=== PATIENT | female | born 1945 | race Caucasian/White ===

== ENCOUNTER 2016-07-23 16:29 | Emergency (ER) | payer MEDICARE, MEDICAID ==
[2016-07-23 17:54] VITALS: BP 138/66
[2016-07-23] MEDS ORDERED: Acetaminophen TAB* 325 MG PO ONE (18:01)
--- NOTE | 2016-07-23 18:13 | UC ---
Lower Extremity/Ankle HPI - HPI Summary HPI Summary: came home from "work program" with a bruised right toe and complains of foot hurting --unable to state an injury and no injury reported by staff - History of Current Complaint Chief Complaint: UCLowerExtremity Stated Complaint: TOE INJURY Time Seen by Provider: 07/23/16 17:57 Hx Obtained From: Patient ?: No Onset/Duration: Sudden Onset, Lasting Days - 1 Severity Initially: Mild Severity Currently: Mild Aggravating Factor(s): Other - touch Alleviating Factor(s): Nothing - Allergies/Home Medications Allergies/Adverse Reactions: Allergies Allergy/AdvReac Type Severity Reaction Status Date / Time Carbamazepine [From Tegretol] Allergy Severe Vomiting Verified 06/21/16 09:13 Codeine Allergy Unknown Verified 07/23/16 17:55 Reaction Details tegr Allergy Severe Vomiting Uncoded 06/21/16 09:13 opioids Allergy Unknown Uncoded 07/23/16 17:55 Reaction Details PMH/Surg Hx/FS Hx/Imm Hx Previously Healthy: No - MR Cardiovascular History Of: Reports: Cardiac Disorders Psychological History Of: Reports: Anxiety - Surgical History Surgical History: Yes Surgery Procedure, Year, and Place: bilat knee replacements - Family History Known Family History: Positive: Unknown Family History: patient living in nursing home unable provide family history - Social History Occupation: Disabled Lives: [facility] Alcohol Use: None Substance Use Type: None Smoking Status (MU): Never Smoked Tobacco Review of Systems Constitutional: Fever Skin: Bruising - right great toe bruising Eyes: Negative ENT: Negative Respiratory: Negative Cardiovascular: Negative Gastrointestinal: Negative Genitourinary: Negative Motor: Negative Neurovascular: Negative Musculoskeletal: Arthralgia - right lateral foot pain Neurological: Negative Psychological: Negative All Other Systems Reviewed And Are Negative: Yes Physical Exam Triage Information Reviewed: Yes Appearance: Well-Appearing, No Pain Distress - when toe is touched, Obese Vital Signs: Initial Vital Signs Temp 97.8 F 07/23/16 17:47 Pulse 70 07/23/16 17:47 Resp 18 07/23/16 17:47 BP 138/66 07/23/16 17:47 Pulse Ox 96 07/23/16 17:47 Vital Signs Reviewed: Yes Eye Exam: Normal Eyes: Positive: Conjunctiva Clear ENT Exam: Normal ENT: Positive: Normal ENT inspection, Hearing grossly normal. Negative: Nasal congestion, Nasal drainage, Trismus, Muffled/hoarse voice Neck exam: Normal Neck: Positive: Supple, Nontender, No Lymphadenopathy Respiratory Exam: Normal Respiratory: Positive: No respiratory distress, No accessory muscle use Cardiovascular Exam: Normal Cardiovascular: Positive: RRR, Pulses Normal, Brisk Capillary Refill Musculoskeletal Exam: Normal Musculoskeletal: Positive: Strength Intact, ROM Intact, Edema @ - right lateral foot Neurological Exam: Normal Neurological: Positive: Alert, Muscle Tone Normal Psychological Exam: Normal Skin Exam: Normal Diagnostics - Laboratory Diagnostic Studies Completed/Ordered: no acute joey injury, Lower Extremity Course/Dx - Course Course Of Treatment: tylenol, ibuprofen, sturdy shoes, follow with pcp prn - Differential Dx/Diagnosis Differential Diagnosis/HQI/PQRI: Cellulitis, Contusion, Fracture (Closed), Sprain, Strain Provider Diagnoses: contusion right 5th toe Discharge - Discharge Plan Condition: Stable Disposition: HOME Patient Education Materials: Foot Contusion (ED) Referrals: Theresa Ferrari MD [Medical Doctor] - If Needed
--- NOTE | 2016-07-23 18:41 | RAD ---
Indication: RIGHT first toe pain and bruising. Indeterminate injury. Comparison: None. Technique: AP, lateral, and oblique views RIGHT foot. Report: Bone density is decreased throughout. Negative for fracture. Loss of the longitudinal arch of the foot. Polyarticular degenerative arthropathy most advanced at the transverse tarsal and intertarsal joints. Moderate plantar fascial origin bone spur. Distal fibula and tibia internal fixation hardware. Diffuse soft tissue edema. IMPRESSION: Negative for fracture or dislocation. Polyarticular osteoarthritis. Nonfocal soft tissue swelling.
== END 2016-07-23 19:13 | disposition home or self-care (01) ==
LOC: UCEAST 16:29
DX: S90.121A Contusion of right lesser toe(s) without damage to nail, initial encounter (principal); X58.XXXA Exposure to other specified factors, initial encounter; Y93.9 Activity, unspecified; Y92.9 Unspecified place or not applicable; Z88.6 Allergy status to analgesic agent; Z88.5 Allergy status to narcotic agent; Z88.8 Allergy status to other drugs, medicaments and biological substances
CPT/HCPCS: 99212; A9270-GY; G0463

== ENCOUNTER 2016-10-09 11:19 | Emergency (ER) | payer MEDICARE, MEDICAID ==
[2016-10-09 12:23] VITALS: BP 130/55
[2016-10-09] MEDS ORDERED: Acetaminophen TAB* 325 MG PO ONE (13:05)
--- NOTE | 2016-10-09 14:23 | RAD ---
HISTORY: Trauma, head injury COMPARISONS: None TECHNIQUE: Multiple contiguous axial CT scans were obtained of the head without intravenous contrast. FINDINGS: HEMORRHAGE/INFARCT: There is no hemorrhage or acute infarct. MASSES/SHIFT: There is no mass or shift. EXTRA-AXIAL SPACES: There are no extra-axial fluid collections. SULCI AND VENTRICLES: The sulci and ventricles are normal in size and position for the patient's stated age. CEREBRUM: There are no focal parenchymal abnormalities. BRAINSTEM: There are no focal parenchymal abnormalities. CEREBELLUM: There are no focal parenchymal abnormalities. VESSELS: The vessels are grossly normal. PARANASAL SINUSES: The paranasal sinuses are clear. ORBITS: The orbits are unremarkable. BONES AND SOFT TISSUE: No bone or soft tissue abnormalities are noted. OTHER: None IMPRESSION: NO ACUTE INTRACRANIAL PATHOLOGY.
--- NOTE | 2016-10-09 14:26 | RAD ---
HISTORY: Trauma, head injury COMPARISONS: None TECHNIQUE: Multiple contiguous axial CT scans were obtained of the cervical spine without intravenous contrast, with coronal and sagittal multiplanar reformations. FINDINGS: BRAIN: The visualized brain is unremarkable CENTRAL CANAL: Evaluation of the central canal is limited on CT technique; however, there is no obvious canalicular mass or epidural hemorrhage. ALIGNMENT: There is straightening with reversal of the normal cervical lordosis. There is grade 1 anterolisthesis of C3 on C4 and C7 on T1 VERTEBRAL BODIES: The odontoid process is intact. There is diffuse osteopenia. The atlantoaxial intervals are symmetric. The vertebral bodies are normal in attenuation, without fracture. There is multilevel anterolateral marginal osteophyte formation JOINTS: There is extensive facet and uncovertebral osteoarthritic change. There is osteoporosis of the atlantoaxial articulation. MUSCULATURE: Unremarkable INTERVERTEBRAL DISCS: There is diffuse loss of intervertebral disc height. AXIAL IMAGES: C2-C3: There is bilateral uncovertebral and facet hypertrophy, greater on the right than on the left. There is moderate right neural foraminal narrowing. There is no significant central canal stenosis C3-C4: There is bilateral uncovertebral facet hypertrophy. There is moderate bilateral neural foraminal narrowing. There is no osseous central canal stenosis. C4-C5: There is bilateral uncovertebral and facet hypertrophy. There is severe right and moderate left neural foraminal narrowing. There is no osseous central canal stenosis. C5-C6: There is bilateral uncovertebral facet hypertrophy. There is severe right neural foraminal narrowing. There is mild narrowing of the central canal. C6-C7: There is bilateral uncovertebral and facet hypertrophy. There is moderate bilateral neural foraminal narrowing. There is no osseous central canal stenosis. C7-T1: There is bilateral uncovertebral and facet hypertrophy. There is severe bilateral neural foraminal narrowing. There is no osseous central canal stenosis SOFT TISSUES: There is a 1.7 cm nodule of the right thyroid OTHER: None. IMPRESSION: 1. OSTEOPENIA. 2. DEGENERATIVE DISC DISEASE AND OSTEOARTHRITIS. 3. THERE IS MULTILEVEL NEURAL FORAMINAL NARROWING RIGHT ABOVE. 4. THERE IS MILD NARROWING OF THE CENTRAL CANAL AT C5-C6. 5. THERE IS A 1.7 CM NODULE OF THE RIGHT THYROID. RECOMMEND CORRELATION WITH DEDICATED IMAGING OF THE RIGHT THYROID IN THE NONACUTE SETTING. 6. NO ACUTE OSSEOUS INJURY TO THE CERVICAL SPINE
--- NOTE | 2016-10-09 14:43 | RAD ---
HISTORY: Fall, abrasion left elbow pain COMPARISONS: None VIEWS: 4, Frontal, lateral, and oblique views of the left elbow FINDINGS: BONE DENSITY: Normal. BONES: There is no displaced fracture. JOINTS: There is moderate to advanced osteoarthritis of the radial-capitellar and ulnar trochlear articulations ALIGNMENT: There is no dislocation. SOFT TISSUES: Unremarkable. OTHER FINDINGS: None. IMPRESSION: OSTEOARTHRITIS. NO ACUTE OSSEOUS INJURY. IF SYMPTOMS PERSIST, RECOMMEND REPEAT IMAGING.
--- NOTE | 2016-10-09 16:34 | UC ---
Awilda Sam Salem, scribed for Hillary Teague MD on 10/09/16 at 1305 . Head Injury HPI - HPI Summary HPI Summary: Patient is a 71 y/o female who presents to the a head injury without LOC after a fall at 1015 this morning. She also presents with an injured left arm and an abrasion on her left elbow. Pt lives in a shelter and is present at the with Coral from the shelter. Here is Kristal note: Individual was taken to due to a fall at [facility] @ 1015. Caridad fell and hit her head in the back of her head. Vitals taken as follows: Bp 138/55. T = 98.6, Ox: 95, HR: 62 R: 18. - History Of Current Complaint Chief Complaint: UCHeadInjury Stated Complaint: FELL HEAD INJURY Time Seen by Provider: 10/09/16 12:55 Hx Obtained From: Patient, Family/Assistant Womens Volleyball Coach - from shelter. Hx From Patient Unobtainable Due To: Other - MRGlenn Onset/Duration: Sudden Onset, Lasting Hours Severity Currently: Moderate Severity Initially: Moderate Pain Intensity: 8 Pain Scale Used: 0-10 Numeric Character: Dull Aggravating Factor(s): Nothing Alleviating Factor(s): Nothing Associated Signs And Symptoms: Positive: Other - Left arm injury and elbow abrasion.. Negative: LOC (Time In Secs./Mins/Hrs), LOC Duration Unknown, Epistaxis, Nausea Anticoagulant Therapy: ASA - Allergies/Home Medications Allergies/Adverse Reactions: Allergies Allergy/AdvReac Type Severity Reaction Status Date / Time Carbamazepine [From Tegretol] Allergy Severe Vomiting Verified 10/09/16 12:24 Codeine Allergy Unknown Verified 10/09/16 12:24 Reaction Details opioids Allergy Unknown Uncoded 10/09/16 12:24 Reaction Details PMH/Surg Hx/FS Hx/Imm Hx Cardiovascular History Of: Reports: Cardiac Disorders Psychological History Of: Reports: Anxiety - Surgical History Surgical History: Yes Surgery Procedure, Year, and Place: bilat knee replacements - Family History Known Family History: Positive: Unknown - Unknown pt is MRGlenn Level 5 Caveat. - Social History Alcohol Use: None Substance Use Type: Prescribed Smoking Status (MU): Never Smoked Tobacco Review of Systems Constitutional: Negative Musculoskeletal: Other: - Left arm injury and elbow abrasion. Psychological: Negative All Other Systems Reviewed And Are Negative: Yes Physical Exam Triage Information Reviewed: Yes Appearance: Well-Appearing, Pain Distress, Obese Vital Signs: Initial Vital Signs Temp 98.6 F 10/09/16 12:18 Pulse 62 10/09/16 12:18 Resp 18 10/09/16 12:18 BP 130/55 10/09/16 12:18 Pulse Ox 96 10/09/16 12:18 Elevated systolic pressure. Vital Signs Reviewed: Yes Eyes: Positive: Conjunctiva Clear ENT Exam: Other - Cauliflower deformity of left ear. ENT: Positive: Pharynx normal, TMs normal, Other: - no hematoma on scalp, indicates occiput Neck: Positive: Supple, Nontender Respiratory: Positive: Lungs clear, Normal breath sounds, No respiratory distress Cardiovascular: Positive: RRR, No Murmur, Pulses Normal, Brisk Capillary Refill Abdomen Description: Positive: Nontender, Soft. Negative: Splenomegaly Musculoskeletal: Positive: Strength Intact, ROM Intact Neurological: Positive: Alert, Muscle Tone Normal Psychological: Positive: Normal Response To Family Skin Exam: Normal Diagnostics - Laboratory Diagnostic Studies Completed/Ordered: SPINE CT. BRAIN CT - Radiology Elbow XR Radiology Interpretation Completed By: Radiologist Head Injury Course/Dx - Course Course Of Treatment: Discussed elevated systolic pressure. CT brain and CT C spine with no acute findings. left elbow xray no fracture - Differential Dx/Diagnosis Provider Diagnoses: 1. Head injury. 2. High blood pressure without diagnosis of hypertension. 3. Thyroid nodule Discharge - Discharge Plan Condition: Stable Disposition: HOME Patient Education Materials: Head Injury (ED) Referrals: Selma Ley MD [Primary Care Provider] - Additional Instructions: Resume prior meds and orders. May attend dayhab program. RETURN TO URGENT CARE FOR ANY NEW OR WORSENING SYMPTOMS The documentation as recorded by the Awilda stewart Salem accurately reflects the service I personally performed and the decisions made by , Hillary Teague MD.
== END 2016-10-09 15:24 | disposition home or self-care (01) ==
LOC: UCEAST 11:19
DX: S09.90XA Unspecified injury of head, initial encounter (principal); S50.312A Abrasion of left elbow, initial encounter; W19.XXXA Unspecified fall, initial encounter; Y93.9 Activity, unspecified; Y92.199 Unspecified place in other specified residential institution as the place of occurrence of the external cause; E04.1 Nontoxic single thyroid nodule; R03.0 Elevated blood-pressure reading, without diagnosis of hypertension; M19.022 Primary osteoarthritis, left elbow; M85.88 Other specified disorders of bone density and structure, other site; M50.30 Other cervical disc degeneration, unspecified cervical region; M47.812 Spondylosis without myelopathy or radiculopathy, cervical region; Z88.5 Allergy status to narcotic agent; Z88.8 Allergy status to other drugs, medicaments and biological substances; Z96.653 Presence of artificial knee joint, bilateral
CPT/HCPCS: 70450; 72125; 99212; A9270-GY; G0463

== ENCOUNTER 2016-11-16 11:17 | Emergency (ER) | payer MEDICARE, MEDICAID ==
[2016-11-16 13:20] VITALS: BP 130/59
--- NOTE | 2016-11-16 13:26 | UC ---
Respiratory Complaint HPI - HPI Summary HPI Summary: [facility]. c/o of fever, cough, SOB for the past few days. - History of Current Complaint Chief Complaint: UCRespiratory Stated Complaint: COUGH,CHEST CONGESTION Time Seen by Provider: 11/16/16 13:13 Hx Obtained From: Patient ?: No Onset/Duration: Sudden Onset, Lasting Days Timing: Constant Severity Initially: Mild Severity Currently: Moderate Character: Cough: Productive Aggravating Factors: Exertion, Deep Breaths, Recumbent Position Associated Signs And Symptoms: Positive: Dyspnea, Fever, Wheezing, Nasal Congestion - Risk Factors Pulmonary Embolism Risk Factors: Negative Cardiac Risk Factors: Negative - Allergies/Home Medications Allergies/Adverse Reactions: Allergies Allergy/AdvReac Type Severity Reaction Status Date / Time Carbamazepine [From Tegretol] Allergy Severe Vomiting Verified 11/16/16 13:19 Codeine Allergy Unknown Verified 11/16/16 13:19 Reaction Details opioids Allergy Unknown Uncoded 11/16/16 13:19 Reaction Details PMH/Surg Hx/FS Hx/Imm Hx Previously Healthy: Yes Cardiovascular History Of: Reports: Cardiac Disorders Neurological History Of: Reports: Seizures Psychological History Of: Reports: Anxiety - Surgical History Surgical History: Yes Surgery Procedure, Year, and Place: bilat knee replacements - Family History Known Family History: Positive: Unknown - Unknown pt is MR. Level 5 Caveat. Family History: [facility] unable provide family history - Social History Alcohol Use: None Substance Use Type: Prescribed Smoking Status (MU): Never Smoked Tobacco Review of Systems Constitutional: Fever Skin: Negative Eyes: Negative ENT: Sore Throat Respiratory: Shortness Of Breath, Cough Cardiovascular: Negative Gastrointestinal: Negative Genitourinary: Negative Motor: Negative Neurovascular: Negative Musculoskeletal: Negative Neurological: Negative Psychological: Negative All Other Systems Reviewed And Are Negative: Yes Physical Exam Triage Information Reviewed: Yes Appearance: No Pain Distress, Ill-Appearing, Obese Vital Signs: Initial Vital Signs Temp 99.7 F 11/16/16 13:13 Pulse 80 11/16/16 13:13 Resp 20 11/16/16 13:13 BP 130/59 11/16/16 13:13 Pulse Ox 97 11/16/16 13:13 Eye Exam: Normal ENT Exam: Normal ENT: Positive: Hearing grossly normal, Pharyngeal erythema, TMs normal Dental Exam: Normal Neck exam: Normal Neck: Positive: Supple, Nontender, No Lymphadenopathy Respiratory: Positive: Chest non-tender, No accessory muscle use, Decreased breath sounds, Wheezing, Inspiration Cardiovascular Exam: Normal Cardiovascular: Positive: RRR, No Murmur, Pulses Normal Abdominal Exam: Normal Abdomen Description: Positive: Nontender, No Organomegaly, Soft Bowel Sounds: Positive: Present Musculoskeletal Exam: Normal Musculoskeletal: Positive: Strength Intact, ROM Intact, No Edema Neurological Exam: Normal Neurological: Positive: Alert, Muscle Tone Normal Psychological Exam: Normal Psychological: Positive: Normal Response To Family Skin Exam: Normal UC Diagnostic Evaluation - Laboratory O2 Sat by Pulse Oximetry: 97 Respiratory Course/Dx - Course Course Of Treatment: hx obtained, exam performed, meds reviewed, chest xray obtained, advil given prior to arrival, prednisone prescribed for bronchitis - Differential Dx/Diagnosis Differential Diagnosis/HQI/PQRI: Asthma, Bronchitis, Lower Resp Infection, Sinusitis Provider Diagnoses: Bronchitis Discharge - Discharge Plan Condition: Stable Disposition: HOME Patient Education Materials: Acute Bronchitis (ED) Additional Instructions: 1. see the attached report sheet for treatment plan.
--- NOTE | 2016-11-16 13:56 | RAD ---
INDICATION: Cough. Fever. Short of breath COMPARISON: None TECHNIQUE: PA and lateral dual-energy views were obtained. FINDINGS: Bones/Soft Tissues: There are no acute bony findings. Cardiomediastinal: The cardiomediastinal silhouette is normal. Lungs: There are no infiltrates. There are mild chronic interstitial changes Pleura: There are no pleural effusions. Other: None IMPRESSION: MILD CHRONIC INTERSTITIAL CHANGES. NO CONVINCING EVIDENCE OF VASCULAR CONGESTION. NO FOCAL CONSOLIDATIVE CHANGES.
== END 2016-11-16 14:09 | disposition home or self-care (01) ==
LOC: UCEAST 11:17
DX: J40 Bronchitis, not specified as acute or chronic (principal); F41.9 Anxiety disorder, unspecified; E66.9 Obesity, unspecified; Z96.653 Presence of artificial knee joint, bilateral; Z88.5 Allergy status to narcotic agent
CPT/HCPCS: 71020; 99212; G0463

== ENCOUNTER 2017-01-28 17:46 | Emergency (ER) | payer MEDICARE, MEDICAID ==
--- NOTE | 2017-01-28 22:24 | ED ---
Respiratory - HPI Summary HPI Summary: 71 female brought in by caregiver with complaints of having an episode of choking on a pea around 5pm today 01/28/17. Patient and caregiver states due to half-way protocol because of this episode she had to be evaluated by a medical professional to ensure she did not aspirate. Patient immediately drank water and short after vomited the pea and water. Since she has not had any difficulty breathing, swallowing or discomfort. Normal vitals. No further vomiting. No complaints at this time. - History of Current Complaint Chief Complaint: EDGeneral Stated Complaint: COUGH, Time Seen by Provider: 01/28/17 21:54 Hx Obtained From: Patient, Family/Human Resources Recruiter - caregiver Onset/Duration: Sudden Onset, Resolved Current Severity: None Pain Intensity: 0 Sputum Amount: None Aggravating Factor(s): Nothing Alleviating Factor(s): Nothing - Allergy/Home Medications Allergies/Adverse Reactions: Allergies Allergy/AdvReac Type Severity Reaction Status Date / Time Carbamazepine [From Tegretol] Allergy Severe Vomiting Verified 01/28/17 21:46 Codeine Allergy Unknown Verified 01/28/17 21:46 Reaction Details Meperidine Allergy Unknown Verified 01/28/17 21:47 Reaction Details Morphine Allergy Unknown Verified 01/28/17 21:47 Reaction Details opioids Allergy Unknown Uncoded 01/28/17 21:46 Reaction Details PMH/Surg Hx/FS Hx/Imm Hx Endocrine/Hematology History: Denies: Hx Diabetes Cardiovascular History: Denies: Hx Hypertension GI History: Reports: Hx Diverticulosis Neurological History: Reports: Hx Developmental Delay, Hx Seizures Psychiatric History: Reports: Hx Anxiety - Surgical History Surgery Procedure, Year, and Place: bilat knee replacements Infectious Disease History: No Infectious Disease History: Denies: Hx Clostridium Difficile, Hx Hepatitis, Hx Human Immunodeficiency Virus (HIV), Hx of Known/Suspected MRSA, Hx Shingles, Hx Tuberculosis, Hx Known/ Suspected VRE, History Other Infectious Disease, Traveled Outside the [place] in Last 30 Days - Family History Known Family History: Positive: Unknown - Unknown pt is MR. Level 5 Caveat. Family History: patient living in half-way unable provide family history - Social History Alcohol Use: None Substance Use Type: Reports: None, Prescribed Smoking Status (MU): Never Smoked Tobacco Review of Systems Constitutional: Negative Eyes: Negative ENT: Negative Cardiovascular: Negative Respiratory: Negative Gastrointestinal: Negative Skin: Negative Neurological: Negative All Other Systems Reviewed And Are Negative: Yes Physical Exam Triage Information Reviewed: Yes Vital Signs On Initial Exam: Initial Vitals Temp Pulse Resp BP Pulse Ox 98.8 F 72 20 162/51 100 01/28/17 17:58 01/28/17 17:58 01/28/17 17:58 01/28/17 17:58 01/28/17 17:58 not hypoxic normal vitals, elevated BP noted. compared to previous visits and is normal range. Vital Signs Reviewed: Yes Appearance: Positive: Well-Appearing, No Pain Distress, Well-Nourished Skin: Positive: Warm, Skin Color Reflects Adequate Perfusion, Dry. Negative: Cold, Numb, Tender, Cyanosis @, Diaphoretic Head/Face: Positive: Normal Head/Face Inspection Eyes: Positive: Normal, EOMI, GIOVANNI, Conjunctiva Clear ENT: Positive: Normal ENT inspection, Hearing grossly normal, Pharynx normal, TMs normal Neck: Positive: Supple, Nontender Respiratory/Lung Sounds: Positive: Clear to Auscultation, Breath Sounds Present. Negative: Rales, Rhonchi, Wheezes Cardiovascular: Positive: Normal, RRR, Pulses are Symmetrical in both Upper and Lower Extremities. Negative: Murmur, Rub Abdomen Description: Positive: Nontender, No Organomegaly, Soft. Negative: Bruit, CVA Tenderness (R), CVA Tenderness (L), Distended, Guarding, Peritoneal Signs, Pulsatile Mass Bowel Sounds: Positive: Present Musculoskeletal: Positive: Normal, Strength/ROM Intact Neurological: Positive: Normal, Sensory/Motor Intact, Alert, Oriented to Person Place, Time Psychiatric: Positive: Affect/Mood Appropriate AVPU Assessment: Alert Diagnostics - Vital Signs Vital Signs Temp Pulse Resp BP Pulse Ox 01/28/17 21:52 16 01/28/17 21:43 97.2 F 64 18 138/64 97 01/28/17 21:00 97.3 F 64 138/64 96 01/28/17 17:58 98.8 F 72 20 162/51 100 - Laboratory Lab Statement: Any lab studies that have been ordered have been reviewed, and results considered in the medical decision making process. - Radiology chest Xray Interpretation: No Acute Changes - No evidence of cardiopulmonary disease or aspiration Radiology Interpretation Completed By: ED Physician - Dr Hall Disposition - Course Course Of Treatment: chest x-ray obtained and negative. PE findings normal and unremarkable. no further work up required at this time. episode resolved prior to coming into ED. Aware of worsening signs and symptoms. Follow up with PCP. - Differential Dx - Cardiopulmonary Differential Diagnoses - Cardiopulmonary: Aspiration, Other - choking, difficulty breathing - Diagnoses Provider Diagnoses: Normal exam, Choking due to food in larynx Discharge - Discharge Plan Condition: Stable Disposition: HOME Referrals: Selma Ley MD [Primary Care Provider] - Additional Instructions: If new symptoms develop such as difficulty breathing or continued vomiting please seek medical attention. Follow up with PCP. Chew food slowly.
[2017-01-29 00:22] VITALS: BP 142/76
--- NOTE | 2017-01-29 07:58 | RAD ---
HISTORY: Rule out foreign body aspiration COMPARISONS: November 25, 2016 VIEWS: 4: Frontal dual-energy and lateral views of the chest. FINDINGS: CARDIOMEDIASTINAL SILHOUETTE: The cardiomediastinal silhouette is normal. CONNOR: The connor are normal. PLEURA: There is minimal left apical pleural thickening. This can be identified previous examinations and is stable. LUNG PARENCHYMA: The lungs are clear. There is no appreciable air trapping. ABDOMEN: The upper abdomen is clear. There is no subphrenic gas. BONES AND SOFT TISSUES: No bone or soft tissue abnormalities are noted. OTHER: There is no radiopaque foreign body. IMPRESSION: NO ACTIVE CARDIOPULMONARY DISEASE. NO RADIOPAQUE FOREIGN BODY
== END 2017-01-29 00:24 | disposition home or self-care (01) ==
LOC: ED 17:46
DX: R09.89 Other specified symptoms and signs involving the circulatory and respiratory systems (principal); R05 Cough
CPT/HCPCS: 71020; 99281

== ENCOUNTER 2017-03-01 06:55 | Emergency (ER) | payer MEDICARE, MEDICAID ==
--- NOTE | 2017-03-01 07:53 | RAD ---
HISTORY: Chest pain COMPARISONS: January 28, 2017 VIEWS:1: Single frontal portable view of the chest at 7:25 AM FINDINGS: LINES AND TUBES: None. CARDIOMEDIASTINAL SILHOUETTE: The cardiomediastinal silhouette is normal for portable technique. PLEURA: The costophrenic angles are sharp. No pleural abnormalities are noted. LUNG PARENCHYMA: The lung volumes are low. The lungs are clear accounting for the phase of respiration. ABDOMEN: The upper abdomen is clear. There is no subphrenic gas. BONES AND SOFT TISSUES: No bone or soft tissue abnormalities are noted. IMPRESSION: LOW LUNG VOLUMES. NO ACTIVE CARDIOPULMONARY DISEASE.
[2017-03-01 08:22] LABS: Hematocrit 42 % (35-47); Hemoglobin 13.9 g/dl (12.0-16.0); Mean Corpuscular HGB Conc 34 g/dl (31-36); Mean Corpuscular Hemoglobin 32 pg (27-31); Mean Corpuscular Volume 94 fL (80-97); Mean Platelet Volume 8 um3 (7.4-10.4); Red Blood Count 4.42 10^6/ul (4.0-5.4); Red Cell Distribution Width 13 % (10.5-15); White Blood Count 7.1 10^3/ul (3.5-10.8)
[2017-03-01 08:35] LABS: Albumin 4.1 g/dL (3.2-5.2); Calcium 8.7 mg/dL (8.6-10.3); EGFR Non-African American 73.9 (>60); Globulin 2.9 g/dL (2-4); Magnesium 2.1 mg/dL (1.9-2.7); Potassium 3.7 mmol/L (3.5-5.0); Total Bilirubin 0.4 mg/dL (0.2-1.0)
[2017-03-01 08:37] LABS: Troponin I 0.01 ng/mL (<0.04)
[2017-03-01 08:52] LABS: TSH (Thyroid Stimulating Horm) 1.66 mcIU/mL (0.34-5.60)
[2017-03-01] MEDS ORDERED: Ketorolac INJ* 30 MG/ML 1 ML VIAL IV PUSH ONE (09:09)
[2017-03-01 10:21] VITALS: BP 114/69
--- NOTE | 2017-03-02 16:06 | ED ---
Corey Sam Thomas, scribed for Kota Rodriguez MD on 03/01/17 at 0724 . HPI Chest Pain - HPI Summary HPI Summary: LEVEL 5 CAVEAT: HPI LIMITED BY The pt is a 71 y/o F with a Hx of MR and presenting to the ED c/o CP that began at an unspecified time. She lives in a custodial. Per EMS, the pts chest pain seemed to resolve when she went to the bathroom, but she still complains of chest pain in the ED. Pt denies fevers, chills, and coughing. PMHx: osteoarthritis, osteopenia, diverticulosis, developmental delay, and seizures. PSHx: bilateral knee replacements. SHx: no smoking, no alcohol use, no illicit drug use. - History of Current Complaint Chief Complaint: EDChestPainROMI Time Seen by Provider: 03/01/17 07:20 Hx Obtained From: Patient, EMS Onset/Duration: Still Present Associated Signs and Symptoms: Positive: Chest Pain - Allergy/Home Medications Allergies/Adverse Reactions: Allergies Allergy/AdvReac Type Severity Reaction Status Date / Time Carbamazepine [From Tegretol] Allergy Severe Vomiting Verified 03/01/17 07:20 Codeine Allergy Unknown Verified 03/01/17 07:20 Reaction Details Meperidine Allergy Unknown Verified 03/01/17 07:20 Reaction Details Morphine Allergy Unknown Verified 03/01/17 07:20 Reaction Details opioids Allergy Unknown Uncoded 03/01/17 07:20 Reaction Details PMH/Surg Hx/FS Hx/Imm Hx Previously Healthy: No - LEVEL 5 CAVEAT: PE LIMITED BY Endocrine/Hematology History: Denies: Hx Diabetes, Hx Anemia Cardiovascular History: Denies: Hx Hypertension GI History: Reports: Hx Diverticulosis Denies: Hx Jaundice Musculoskeletal History: Reports: Hx Arthritis, Other Musculoskeletal History - Hx osteopenia Neurological History: Reports: Hx Developmental Delay, Hx Seizures Psychiatric History: Reports: Hx Anxiety - Surgical History Surgery Procedure, Year, and Place: bilat knee replacements Infectious Disease History: Denies: Hx Clostridium Difficile, Hx Hepatitis, Hx Human Immunodeficiency Virus (HIV), Hx of Known/Suspected MRSA, Hx Shingles, Hx Tuberculosis, Hx Known/ Suspected VRE, History Other Infectious Disease, Traveled Outside the [place] in Last 30 Days - Family History Known Family History: Positive: Unknown - Unknown pt is . Family History: patient living in custodial unable provide family history - Social History Alcohol Use: None Substance Use Type: Reports: None, Prescribed Smoking Status (MU): Never Smoked Tobacco Review of Systems - ROS Summary Review of Systems Summary: LEVEL 5 CAVEAT: ROS LIMITED BY MR Positive: Chest Pain All Other Systems Reviewed And Are Negative: No Physical Exam - Summary Physical Exam Summary: VITAL SIGNS: Reviewed. GENERAL: ~Patient is a well-developed and nourished female who is lying comfortable in the stretcher. She cannot give a good history due to MR. Patient is not in any acute respiratory distress. HEAD AND FACE: No signs of trauma. ~No ecchymosis, hematomas or skull depressions. No sinus tenderness. EYES: PERRLA, EOMI x 2, No injected conjunctiva, no nystagmus. EARS: Hearing grossly intact. Ear canals and tympanic membranes are within normal limits. MOUTH: Oropharynx within normal limits. NECK: Supple, trachea is midline, no adenopathy, no JVD, no carotid bruit, no c- spine tenderness, neck with full ROM. CHEST: There is positive tenderness to the RIGHT side of her chest. Symmetric. LUNGS: Clear to auscultation bilaterally. No wheezing or crackles. CVS: Regular rate and rhythm, S1 and S2 present, no murmurs or gallops appreciated. ABDOMEN: Soft, non-tender. No signs of distention. No rebound no guarding, and no masses palpated. Bowel sounds are normal. EXTREMITIES: FROM in all major joints, no edema, no cyanosis or clubbing. NEURO: She is alert but not oriented. No acute neurological deficits. SKIN: There is some bruising on the LEFT breast. Dry and warm Triage Information Reviewed: Yes Vital Signs On Initial Exam: Temp 98.8, HR 58, RR 16, SaO2 97, BP 97/79 Vital Signs Reviewed: Yes Diagnostics - Vital Signs Vital Signs Temp Pulse Resp BP Pulse Ox 03/01/17 09:30 67 16 114/69 96 03/01/17 09:01 61 17 103/67 98 03/01/17 09:00 62 16 98 03/01/17 08:30 58 16 97/79 97 03/01/17 08:00 55 10 142/94 96 03/01/17 07:45 63 17 115/79 97 03/01/17 07:30 58 12 99/69 95 03/01/17 07:13 98.8 F 57 16 113/65 97 03/01/17 07:10 61 10 93 03/01/17 07:09 113/65 - Laboratory Lab Results: Lab Results 03/01/17 03/01/17 03/01/17 Range/Units 07:45 07:45 07:45 WBC 7.1 (3.5-10.8) 10^3/ul RBC 4.42 (4.0-5.4) 10^6/ul Hgb 13.9 (12.0-16.0) g/dl Hct 42 (35-47) % MCV 94 (80-97) fL MCH 32 H (27-31) pg MCHC 34 (31-36) g/dl RDW 13 (10.5-15) % Plt Count 192 (150-450) 10^3/ul MPV 8 (7.4-10.4) um3 Neut % (Auto) 66.9 (38-83) % Lymph % (Auto) 19.2 L (25-47) % [place] % (Auto) 11.2 H (1-9) % Eos % (Auto) 2.1 (0-6) % Baso % (Auto) 0.6 (0-2) % Absolute Neuts (auto) 4.7 (1.5-7.7) 10^3/ul Absolute Lymphs (auto) 1.4 (1.0-4.8) 10^3/ul Absolute Monos (auto) 0.8 (0-0.8) 10^3/ul Absolute Eos (auto) 0.2 (0-0.6) 10^3/ul Absolute Basos (auto) 0 (0-0.2) 10^3/ul Absolute Nucleated RBC 0.01 10^3/ul Nucleated RBC % 0.1 INR (Anticoag Therapy) 0.94 (0.89-1.11) Sodium 142 (133-145) mmol/L Potassium 3.7 (3.5-5.0) mmol/L Chloride 111 (101-111) mmol/L Carbon Dioxide 25 (22-32) mmol/L Anion Gap 6 (2-11) mmol/L BUN 20 (6-24) mg/dL Creatinine 0.77 (0.51-0.95) mg/dL Est GFR ( Amer) 95.0 (>60) Est GFR (Non-Af Amer) 73.9 (>60) BUN/Creatinine Ratio 26.0 H (8-20) Glucose 97 (70-100) mg/dL Calcium 8.7 (8.6-10.3) mg/dL Magnesium 2.1 (1.9-2.7) mg/dL Total Bilirubin 0.40 (0.2-1.0) mg/dL AST 17 (13-39) U/L ALT 16 (7-52) U/L Alkaline Phosphatase 69 (34-104) U/L Total Creatine Kinase 64 (10-223) U/L CK-MB (CK-2) 1.5 (0.6-6.3) ng/mL Troponin I 0.01 (<0.04) ng/mL B-Natriuretic Peptide ( - 100) pg/mL Total Protein 7.0 (6.4-8.9) g/dL Albumin 4.1 (3.2-5.2) g/dL Globulin 2.9 (2-4) g/dL Albumin/Globulin Ratio 1.4 (1-3) TSH 1.66 (0.34-5.60) mcIU/mL 03/01/17 Range/Units 07:45 WBC (3.5-10.8) 10^3/ul RBC (4.0-5.4) 10^6/ul Hgb (12.0-16.0) g/dl Hct (35-47) % MCV (80-97) fL MCH (27-31) pg MCHC (31-36) g/dl RDW (10.5-15) % Plt Count (150-450) 10^3/ul MPV (7.4-10.4) um3 Neut % (Auto) (38-83) % Lymph % (Auto) (25-47) % [place] % (Auto) (1-9) % Eos % (Auto) (0-6) % Baso % (Auto) (0-2) % Absolute Neuts (auto) (1.5-7.7) 10^3/ul Absolute Lymphs (auto) (1.0-4.8) 10^3/ul Absolute Monos (auto) (0-0.8) 10^3/ul Absolute Eos (auto) (0-0.6) 10^3/ul Absolute Basos (auto) (0-0.2) 10^3/ul Absolute Nucleated RBC 10^3/ul Nucleated RBC % INR (Anticoag Therapy) (0.89-1.11) Sodium (133-145) mmol/L Potassium (3.5-5.0) mmol/L Chloride (101-111) mmol/L Carbon Dioxide (22-32) mmol/L Anion Gap (2-11) mmol/L BUN (6-24) mg/dL Creatinine (0.51-0.95) mg/dL Est GFR ( Amer) (>60) Est GFR (Non-Af Amer) (>60) BUN/Creatinine Ratio (8-20) Glucose (70-100) mg/dL Calcium (8.6-10.3) mg/dL Magnesium (1.9-2.7) mg/dL Total Bilirubin (0.2-1.0) mg/dL AST (13-39) U/L ALT (7-52) U/L Alkaline Phosphatase (34-104) U/L Total Creatine Kinase (10-223) U/L CK-MB (CK-2) (0.6-6.3) ng/mL Troponin I (<0.04) ng/mL B-Natriuretic Peptide 60 ( - 100) pg/mL Total Protein (6.4-8.9) g/dL Albumin (3.2-5.2) g/dL Globulin (2-4) g/dL Albumin/Globulin Ratio (1-3) TSH (0.34-5.60) mcIU/mL Result Diagrams: 03/01/17 07:45 03/01/17 07:45 Lab Statement: Any lab studies that have been ordered have been reviewed, and results considered in the medical decision making process. - Radiology CXR Xray Interpretation: No Acute Changes - LOW LUNG VOLUMES. NO ACTIVE CARDIOPULMONARY DISEASE. Radiology Interpretation Completed By: Radiologist - EKG 08:26 Cardiac Rate: Bradycardia EKG Interpretation: Sinus bradycardia at 57 BPM. Chest Pain Course/Dx - Course Assessment/Plan: The pt is a 71 y/o F with a Hx of MR and presenting to the ED c /o CP that began at an unspecified time. She lives in a custodial. Per EMS, the pts chest pain seemed to resolve when she went to the bathroom, but she still complains of chest pain in the ED. Pt denies fevers, chills, and coughing. PMHx: osteoarthritis, osteopenia, diverticulosis, developmental delay , and seizures. PSHx: bilateral knee replacements. SHx: no smoking, no alcohol use, no illicit drug use. Test results are without any significant abnormality. CXR show low lung volumes without any active cardiopulmonary disease. EKG shows sinus bradycardia without ST elevations. In the physical exam , there is slight bruising around the left breast, but the patient is complaining of right-sided chest pain. Therefore, I do not believe that the bruising is associated with the chest pain. In the ED course, the patient was given Toradol and all symptoms were resolved. The patient reports that the chest pain has subsided. Therefore, since the symptoms have resolved, the EKG is negative, and the troponin is negative, I do not believe that the patient is dealing with an ACS. She doesnt seem to be having a pulmonary embolus since the paitent is not hypoxic and she is not tachycardic. Rather, I believe that the patient has chest wall pain. Since the symptoms are resolved with NSAIDs, the patient will be discharged home with follow up from her PCP. She is hemodynamically stable and alert and not oriented. I discussed all the findings and test results with the patient. Patient was instructed to return to the emergency room immediately if any of the symptoms return or worsens. Plan of care was discussed with the patient and understands and agrees. All questions were answered at patient satisfaction. There were no further complaints or concerns. - Chest Pain Differential Diagnosis/HQI/PQRI: Acute MT, ACS, Angina, CHF, Chest Wall, GI Disease, Lower Respiratory Infection - Diagnoses Provider Diagnoses: Chest pain Discharge - Discharge Plan Condition: Stable Disposition: HOME Patient Education Materials: Chest Pain (ED) Referrals: Selma Ley MD [Primary Care Provider] - 3 Days The documentation as recorded by the Corey stewart Thomas accurately reflects the service I personally performed and the decisions made by me, Kota Rodriguez MD.
== END 2017-03-01 10:19 | disposition home or self-care (01) ==
LOC: ED 06:55
DX: R07.89 Other chest pain (principal); R00.1 Bradycardia, unspecified; K57.90 Diverticulosis of intestine, part unspecified, without perforation or abscess without bleeding; R56.9 Unspecified convulsions; M85.80 Other specified disorders of bone density and structure, unspecified site; R62.50 Unspecified lack of expected normal physiological development in childhood; F41.9 Anxiety disorder, unspecified; Z96.653 Presence of artificial knee joint, bilateral; Z88.5 Allergy status to narcotic agent
CPT/HCPCS: 36415; 71010; 80053; 82550; 82553; 83735; 83880; 84443; 84484; 85025; 85610; 93005; 96374; 99282; J1885

== ENCOUNTER 2017-04-30 09:35 | Emergency (ER) | payer MEDICARE, MEDICAID ==
[2017-04-30 10:44] LABS: Hematocrit 40 % (35-47); Hemoglobin 13.3 g/dl (12.0-16.0); Mean Corpuscular HGB Conc 34 g/dl (31-36); Mean Corpuscular Hemoglobin 31 pg (27-31); Mean Corpuscular Volume 93 fL (80-97); Mean Platelet Volume 8 um3 (7.4-10.4); Red Blood Count 4.24 10^6/ul (4.0-5.4); Red Cell Distribution Width 13 % (10.5-15); White Blood Count 8.3 10^3/ul (3.5-10.8)
[2017-04-30 10:47] LABS: Urine Bacteria Absent (Absent); Urine Bilirubin Negative (Negative); Urine Glucose Negative (Negative); Urine Nitrite Negative (Negative)
--- NOTE | 2017-04-30 10:52 | ED ---
Neurological HPI - HPI Summary HPI Summary: Developmentally disabled pt here w/ concerns for neurological deficits s/p absence seizure earlier this morning. At 7:30am, it was reported by staff that she stared off into space for about 50 seconds. At about 7:50am, it was observed that she had slurred speech, Lt hand pain, top of head "felt funny", and Lt leg pain. When she ambulated, staff reports she was "stumbling on her feet" which is not baseline for her. When asked how long these sx lasted, staff reported slurred speech was about 1 hour. EMS crew reports pt improved by time of arriving here. 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 She is also on topamax for moods which may have an effect on controlling seizures. No injury to self or others during episode this morning. Pt is back to baseline now per staff. No reported head injuries as a result of episode nor preceding. - History of Current Complaint Chief Complaint: EDSeizure Stated Complaint: POSS SEIZURE Time Seen by Provider: 04/30/17 10:08 Hx Obtained From: Patient, Family/Mechanotherapist - staff Pain Intensity: 0 - Allergy/Home Medications Allergies/Adverse Reactions: Allergies Allergy/AdvReac Type Severity Reaction Status Date / Time Carbamazepine [From Tegretol] Allergy Severe Vomiting Verified 03/01/17 07:20 Codeine Allergy Unknown Verified 03/01/17 07:20 Reaction Details Meperidine Allergy Unknown Verified 03/01/17 07:20 Reaction Details Morphine Allergy Unknown Verified 03/01/17 07:20 Reaction Details opioids Allergy Unknown Uncoded 03/01/17 07:20 Reaction Details PMH/Surg Hx/FS Hx/Imm Hx Previously Healthy: Yes Endocrine/Hematology History: Denies: Hx Anticoagulant Therapy, Hx Blood Disorders, Hx Diabetes, Hx Thyroid Disease, Hx Anemia Cardiovascular History: Reports: Hx Hypercholesterolemia - takes statin Denies: Hx Aneurysm, Hx Deep Vein Thrombosis, Hx Embolism, Hx Hypertension, Hx Myocardial Infarction GI History: Reports: Hx Diverticulosis Denies: Hx Jaundice Musculoskeletal History: Reports: Hx Arthritis, Other Musculoskeletal History - Hx osteopenia Neurological History: Reports: Hx Developmental Delay, Hx Seizures - zonegran and topamax Psychiatric History: Reports: Hx Anxiety, Other Psychiatric Issues/Disorders - mood d/o - takes multiple meds - Surgical History Surgery Procedure, Year, and Place: bilat knee replacements Infectious Disease History: No Infectious Disease History: Denies: Hx Clostridium Difficile, Hx Hepatitis, Hx Human Immunodeficiency Virus (HIV), Hx of Known/Suspected MRSA, Hx Shingles, Hx Tuberculosis, Hx Known/ Suspected VRE, History Other Infectious Disease, Traveled Outside the [place] in Last 30 Days - Family History Known Family History: Positive: Unknown - Unknown pt has developmental delays Family History: patient living in [facility] unable provide family history - Social History Alcohol Use: None Substance Use Type: Reports: None, Prescribed Smoking Status (MU): Never Smoked Tobacco Physical Exam - Summary Physical Exam Summary: neuro normal for baseline - ambulating well Vital Signs On Initial Exam: Initial Vitals Temp Pulse Resp BP Pulse Ox 98.8 F 71 17 142/58 98 04/30/17 09:52 04/30/17 09:52 04/30/17 09:52 04/30/17 09:52 04/30/17 09:52 - [place] Coma Scale Coma Scale Total: 15 Diagnostics - Vital Signs Vital Signs Temp Pulse Resp BP Pulse Ox 04/30/17 09:52 98.8 F 17 142/58 98 - Laboratory Lab Results: Lab Results 04/30/17 Range/Units 10:30 WBC 8.3 (3.5-10.8) 10^3/ul RBC 4.24 (4.0-5.4) 10^6/ul Hgb 13.3 (12.0-16.0) g/dl Hct 40 (35-47) % MCV 93 (80-97) fL MCH 31 (27-31) pg MCHC 34 (31-36) g/dl RDW 13 (10.5-15) % Plt Count 194 (150-450) 10^3/ul MPV 8 (7.4-10.4) um3 Neut % (Auto) 68.2 (38-83) % Lymph % (Auto) 18.5 L (25-47) % [place] % (Auto) 10.5 H (1-9) % Eos % (Auto) 2.1 (0-6) % Baso % (Auto) 0.7 (0-2) % Absolute Neuts (auto) 5.6 (1.5-7.7) 10^3/ul Absolute Lymphs (auto) 1.5 (1.0-4.8) 10^3/ul Absolute Monos (auto) 0.9 H (0-0.8) 10^3/ul Absolute Eos (auto) 0.2 (0-0.6) 10^3/ul Absolute Basos (auto) 0.1 (0-0.2) 10^3/ul Absolute Nucleated RBC 0.01 10^3/ul Nucleated RBC % 0.1 Result Diagrams: 04/30/17 10:30 04/30/17 10:30 Lab Statement: Any lab studies that have been ordered have been reviewed, and results considered in the medical decision making process. Course/Dx - Course Course Of Treatment: Pt presents w/ ED w/ concern for CVA s/p seizure sx. Her neuro exam is neg here and pt w/o injury during episode. Labs are WNL and report sounds like post-ictal sx. Discussed w/ Dr. Rodriguez - no head imaging necessary. Will d/c to PCP/neurologist for f/u on seizures. Continue meds as directed. Return to ED if danger s/sx present. - Diagnoses Provider Diagnoses: Post-ictal state Discharge - Discharge Plan Condition: Stable Disposition: HOME Patient Education Materials: Epilepsy (ED) Referrals: Selma Ley MD [Primary Care Provider] - Additional Instructions: Rest, stay hydrated and nourished Continue medications as directed Follow-up with PCP/neurologist to reassess seizure control - may need medication adjustment *If symptoms return, return to ED
[2017-04-30 11:01] LABS: BUN/Creatinine Ratio 26.7 (8-20); EGFR Non-African American 76.2 (>60); Magnesium 1.9 mg/dL (1.9-2.7); Potassium 3.8 mmol/L (3.5-5.0); Total Bilirubin 0.3 mg/dL (0.2-1.0)
[2017-04-30 11:35] VITALS: BP 142/61
[2017-04-30 11:51] LABS: TSH (Thyroid Stimulating Horm) 1.58 mcIU/mL (0.34-5.60)
== END 2017-04-30 13:00 | disposition home or self-care (01) ==
LOC: ED 09:35
DX: G40.909 Epilepsy, unspecified, not intractable, without status epilepticus (principal); E78.00 Pure hypercholesterolemia, unspecified; F39 Unspecified mood [affective] disorder; M79.642 Pain in left hand; R47.81 Slurred speech; Z79.899 Other long term (current) drug therapy; Z88.5 Allergy status to narcotic agent; Z88.8 Allergy status to other drugs, medicaments and biological substances
CPT/HCPCS: 36415; 80053; 81003; 81015; 83605; 83735; 84443; 85025; 85610; 87077; 87086; 93005; 99282

== ENCOUNTER 2017-06-13 16:43 | Emergency (ER) | payer MEDICARE, MEDICAID ==
--- NOTE | 2017-06-13 18:05 | RAD ---
INDICATION: Head injury. COMPARISON: Comparison is made with a prior CT of the brain from November 04, 2016. TECHNIQUE: Contiguous axial sections of the brain were obtained from the skull base to the vertex without contrast. FINDINGS: The ventricles, cisterns and sulci are within normal limits. No significant focal abnormality or mass effect is seen. There is no evidence for hemorrhage. There is focal soft tissue swelling and a small hematoma located posterior to the right occipital bone measuring 3.6 x 0.7 cm in size. No fracture is seen. The visualized portion of the paranasal sinuses and mastoid air cells appear clear. IMPRESSION: 1. NO EVIDENCE FOR ACUTE INTRACRANIAL ABNORMALITY. 2. SMALL HEMATOMA POSTERIOR TO THE RIGHT OCCIPITAL BONE. NO FRACTURE IS SEEN.
[2017-06-13] MEDS ORDERED: Acetaminophen TAB* 325 MG PO ONE (18:11)
--- NOTE | 2017-06-13 18:14 | RAD ---
INDICATION: Head injury. COMPARISON: Comparison is made with a prior CT of the cervical spine from October 09, 2016. TECHNIQUE: Contiguous axial sections were obtained from the skull base through the C7 vertebra. Images were reconstructed in the sagittal and coronal planes. FINDINGS: There is straightening and reversal of the normal cervical lordosis. No prevertebral soft tissue swelling or fracture is seen. There is minimal anterior listhesis of C3 relative to C4 and C7 relative to T1 of approximately 3 mm at both levels which is unchanged from the prior study. At the C2-C3 level there are moderate hypertrophic changes within the facet joints. No significant spinal canal narrowing is present. There is moderate neural foraminal narrowing on the right side. At the C3-C4 level there are hypertrophic changes within the facet joints. No significant spinal canal narrowing is present. There is moderate to severe bilateral neural foraminal narrowing. At the C4-C5 level there is mild posterior uncinate process spurring and hypertrophic changes within the facet joints. There is mild spinal canal narrowing and mild to moderate bilateral neural foraminal narrowing. At the C5-C6 level there is moderate posterior uncinate process spurring which causes moderate spinal canal narrowing. There is moderate neural foraminal narrowing on the right side and mild neural foraminal narrowing on the left side. At the C6-C7 level there is mild posterior uncinate process spurring. There is moderate spinal canal narrowing and mild bilateral neural foraminal narrowing. There is a 2.0 cm nodule within the right thyroid lobe which appears unchanged from the prior study. IMPRESSION: 1. STRAIGHTENING AND REVERSAL OF THE NORMAL CERVICAL LORDOSIS. NO EVIDENCE FOR FRACTURE. 2. MODERATE TO SEVERE CERVICAL SPONDYLOSIS.
--- NOTE | 2017-06-13 18:23 | ED ---
Head Injury - HPI Summary HPI Summary: 71F presents with head injury today. She was at her assisted living place and she was joking with the staff and she fell backwards and hit head on table. They deny any loc. She has not vomiting and she denies any nausea. She denies any neck pain. She is not on blood thinners. She has been acting normal per caregiver. She lives in a home for mental handicap. She normal ambulates by her self. She complains of a headache. She has not taken anything for her headache. - History Of Current Complaint Chief Complaint: EDHeadInjury Stated Complaint: FALL Time Seen by Provider: 06/13/17 16:46 Pain Intensity: 7 - Allergies/Home Medications Allergies/Adverse Reactions: Allergies Allergy/AdvReac Type Severity Reaction Status Date / Time Carbamazepine [From Tegretol] Allergy Severe Vomiting Verified 03/01/17 07:20 Codeine Allergy Unknown Verified 03/01/17 07:20 Reaction Details Meperidine Allergy Unknown Verified 03/01/17 07:20 Reaction Details Morphine Allergy Unknown Verified 03/01/17 07:20 Reaction Details opioids Allergy Unknown Uncoded 03/01/17 07:20 Reaction Details PMH/Surg Hx/FS Hx/Imm Hx Endocrine/Hematology History: Denies: Hx Anticoagulant Therapy, Hx Blood Disorders, Hx Diabetes, Hx Thyroid Disease, Hx Anemia Cardiovascular History: Reports: Hx Hypercholesterolemia - takes statin Denies: Hx Aneurysm, Hx Deep Vein Thrombosis, Hx Embolism, Hx Hypertension, Hx Myocardial Infarction GI History: Reports: Hx Diverticulosis Denies: Hx Jaundice Musculoskeletal History: Reports: Hx Arthritis, Other Musculoskeletal History - Hx osteopenia Neurological History: Reports: Hx Developmental Delay, Hx Seizures - zonegran and topamax Psychiatric History: Reports: Hx Anxiety, Other Psychiatric Issues/Disorders - mood d/o - takes multiple meds - Surgical History Surgery Procedure, Year, and Place: bilat knee replacements Infectious Disease History: No Infectious Disease History: Denies: Hx Clostridium Difficile, Hx Hepatitis, Hx Human Immunodeficiency Virus (HIV), Hx of Known/Suspected MRSA, Hx Shingles, Hx Tuberculosis, Hx Known/ Suspected VRE, History Other Infectious Disease, Traveled Outside the [place] in Last 30 Days - Family History Known Family History: Positive: Unknown - Unknown pt has developmental delays Family History: patient living in residential unable provide family history - Social History Alcohol Use: None Substance Use Type: Reports: None Smoking Status (MU): Never Smoked Tobacco Review of Systems Negative: Fever Negative: Chest Pain Negative: Shortness Of Breath Negative: Vomiting Positive: Headache All Other Systems Reviewed And Are Negative: Yes Physical Exam Triage Information Reviewed: Yes Vital Signs On Initial Exam: Initial Vitals Temp Pulse Resp BP Pulse Ox 99.2 F 75 16 159/76 98 06/13/17 16:44 06/13/17 16:44 06/13/17 16:44 06/13/17 16:44 06/13/17 16:44 Vital Signs Reviewed: Yes Appearance: Positive: Well-Appearing Skin: Positive: Warm, Dry Head/Face: Positive: Normal Head/Face Inspection, Other - hematoma to back of scalp, no racoon eyes, potter sign Eyes: Positive: Normal, EOMI, GIOVANNI, Conjunctiva Clear ENT: Positive: Normal ENT inspection, Pharynx normal, TMs normal Respiratory/Lung Sounds: Positive: Clear to Auscultation, Breath Sounds Present Cardiovascular: Positive: Normal, RRR Abdomen Description: Positive: Nontender, Soft Bowel Sounds: Positive: Present Musculoskeletal: Positive: Strength/ROM Intact - neck, Other - nontender neck Neurological: Positive: Sensory/Motor Intact, CN Intact II-III - [place] Coma Scale Best Eye Response: 4 - Spontaneous Best Motor Response: 6 - Obeys Commands Best Verbal Response: 5 - Oriented Diagnostics - Vital Signs Vital Signs Temp Pulse Resp BP Pulse Ox 06/13/17 16:44 99.2 F 75 16 159/76 98 - Laboratory Lab Statement: Any lab studies that have been ordered have been reviewed, and results considered in the medical decision making process. - CT brain CT Interpretation: Positive (See Comments) - IMPRESSION: 1. NO EVIDENCE FOR ACUTE INTRACRANIAL ABNORMALITY. 2. SMALL HEMATOMA POSTERIOR TO THE RIGHT OCCIPITAL BONE. NO FRACTURE IS SEEN. CT Interpretation Completed By: Radiologist neck CT Interpretation: No Acute Changes - IMPRESSION: 1. STRAIGHTENING AND REVERSAL OF THE NORMAL CERVICAL LORDOSIS. NO EVIDENCE FOR FRACTURE. 2. MODERATE TO SEVERE CERVICAL SPONDYLOSIS. CT Interpretation Completed By: Radiologist Head Injury Course/Dx Course Of Treatment: 71F presents with head injury today. She was at her assisted living place and she was joking with the staff and she fell backwards and hit head on table. They deny any loc. She has not vomiting and she denies any nausea. She denies any neck pain. She is not on blood thinners. She has been acting normal per caregiver. She lives in a home for mental handicap. She normal ambulates by her self. She complains of a headache. She has not taken anything for her headache. on exam has contustion to back of head. nontender neck. normal neuro exam. CT brain and neck no fracture or hemmorhage. will discharge with instructions to follow up with primary patient understand and agrees with plan. - Diagnoses Differential Diagnosis/HQI/PQRI: Concussion Without LOC, Contusion, Intracranial Bleed Provider Diagnoses: Head injury Discharge - Discharge Plan Condition: Good Disposition: HOME Patient Education Materials: Head Injury (ED) Forms: *Gen. Provider Communication Referrals: Selma Ley MD [Primary Care Provider] - Additional Instructions: Place ice on area as needed Take Tylenol for headache every 6 hours Follow up with primary within 5 days Return to ED if develop vomiting, severe headache, change in behavior, or any new or worsening symptoms
[2017-06-13 18:38] VITALS: BP 135/71
== END 2017-06-13 18:47 | disposition home or self-care (01) ==
LOC: ED 16:43
DX: S09.90XA Unspecified injury of head, initial encounter (principal); R62.50 Unspecified lack of expected normal physiological development in childhood; G40.909 Epilepsy, unspecified, not intractable, without status epilepticus; W01.198A Fall on same level from slipping, tripping and stumbling with subsequent striking against other object, initial encounter; Y92.099 Unspecified place in other non-institutional residence as the place of occurrence of the external cause; Z88.5 Allergy status to narcotic agent; E78.00 Pure hypercholesterolemia, unspecified
CPT/HCPCS: 70450; 72125; 99282; A9270-GY

== ENCOUNTER 2017-06-23 21:24 | Emergency (ER) | payer MEDICARE, MEDICAID ==
--- NOTE | 2017-06-23 22:11 | ED ---
Psychiatric Complaint - HPI Summary HPI Summary: Patient presents to the ED from assisted living sent here by staff after receiving the wrong medications prior to bedtime. Per notes, she ingested Trileptal 300mg. She was sent here for evaluation. She denies any complaints at this time including chest pain, SOB, abdominal pain, N/V/C/D. She is stable on arrival. Denies fevers, sweats or chills. Hx of seizures and takes Topemax. - History Of Current Complaint Chief Complaint: EDGeneral Time Seen by Provider: 06/23/17 21:58 Hx Obtained From: Patient ?: No Onset/Duration: Sudden Onset Timing: Constant Severity Initially: Mild Severity Currently: None Aggravating Factor(s): Nothing Alleviating Factor(s): Nothing - Allergies/Home Medications Allergies/Adverse Reactions: Allergies Allergy/AdvReac Type Severity Reaction Status Date / Time Carbamazepine [From Tegretol] Allergy Severe Vomiting Verified 03/01/17 07:20 Codeine Allergy Unknown Verified 03/01/17 07:20 Reaction Details Meperidine Allergy Unknown Verified 03/01/17 07:20 Reaction Details Morphine Allergy Unknown Verified 03/01/17 07:20 Reaction Details opioids Allergy Unknown Uncoded 03/01/17 07:20 Reaction Details PMH/Surg Hx/FS Hx/Imm Hx Previously Healthy: Yes Endocrine/Hematology History: Denies: Hx Anticoagulant Therapy, Hx Blood Disorders, Hx Diabetes, Hx Thyroid Disease, Hx Anemia Cardiovascular History: Reports: Hx Hypercholesterolemia - takes statin Denies: Hx Aneurysm, Hx Deep Vein Thrombosis, Hx Embolism, Hx Hypertension, Hx Myocardial Infarction GI History: Reports: Hx Diverticulosis Denies: Hx Jaundice Musculoskeletal History: Reports: Hx Arthritis, Other Musculoskeletal History - Hx osteopenia Neurological History: Reports: Hx Developmental Delay, Hx Seizures - zonegran and topamax Psychiatric History: Reports: Hx Anxiety, Other Psychiatric Issues/Disorders - mood d/o - takes multiple meds - Surgical History Surgery Procedure, Year, and Place: bilat knee replacements - Immunization History Hx Pertussis Vaccination: No Immunizations Up to Date: Unable to Obtain/Confirm Infectious Disease History: No Infectious Disease History: Denies: Hx Clostridium Difficile, Hx Hepatitis, Hx Human Immunodeficiency Virus (HIV), Hx of Known/Suspected MRSA, Hx Shingles, Hx Tuberculosis, Hx Known/ Suspected VRE, History Other Infectious Disease, Traveled Outside the [place] in Last 30 Days - Family History Known Family History: Positive: Unknown - Unknown pt has developmental delays Family History: patient living in assisted unable provide family history - Social History Alcohol Use: None Substance Use Type: Reports: None Smoking Status (MU): Never Smoked Tobacco Review of Systems Constitutional: Negative Negative: Fever, Chills, Fatigue Eyes: Negative Cardiovascular: Negative Respiratory: Negative Genitourinary: Negative Positive: no symptoms reported, see HPI Skin: Negative All Other Systems Reviewed And Are Negative: Yes Physical Exam Triage Information Reviewed: Yes Vital Signs On Initial Exam: Initial Vitals Temp Pulse Resp BP Pulse Ox 97.3 F 61 16 135/75 96 06/23/17 21:27 06/23/17 21:27 06/23/17 21:27 06/23/17 21:27 06/23/17 21:27 Vital Signs Reviewed: Yes Appearance: Positive: Well-Appearing, Well-Nourished Skin: Positive: Warm, Skin Color Reflects Adequate Perfusion Head/Face: Positive: Normal Head/Face Inspection Neck: Positive: Supple, Nontender, No Lymphadenopathy Respiratory/Lung Sounds: Positive: Clear to Auscultation, Breath Sounds Present Cardiovascular: Positive: Normal, RRR, Pulses are Symmetrical in both Upper and Lower Extremities Musculoskeletal: Positive: Normal, Strength/ROM Intact Neurological: Positive: Speech Normal Psychiatric: Positive: Normal, Affect/Mood Appropriate AVPU Assessment: Alert Diagnostics - Vital Signs Vital Signs Temp Pulse Resp BP Pulse Ox 06/23/17 21:27 97.3 F 61 16 135/75 96 - Laboratory Lab Statement: Any lab studies that have been ordered have been reviewed, and results considered in the medical decision making process. Course/Dx - Course Course Of Treatment: EKG obtained and compared to previous with no changes. Called poison control who stated she should be observed at home, but will most likely not have a reaction. Medication was taken 2.5 hours prior to arrival and patient denies any symptoms. She is discharged home with recommendation of taking all at home medications as prescribed starting tomorrow. - Differential Dx/Clinical Impression Provider Diagnosis: Medication error Discharge - Discharge Plan Condition: Stable Disposition: HOME Referrals: Selma Ley MD [Primary Care Provider] - Additional Instructions: Resume medications as prescribed tomorrow Monitor As discussed, poison control was notified and stated reaction could be upset stomach Follow up with PCP as scheduled.
[2017-06-23 23:09] VITALS: BP 145/67
== END 2017-06-23 23:08 | disposition home or self-care (01) ==
LOC: ED 21:24
DX: T42.1X1A Poisoning by iminostilbenes, accidental (unintentional), initial encounter (principal); Y92.9 Unspecified place or not applicable
CPT/HCPCS: 93005; 99282

== ENCOUNTER 2017-10-02 19:21 | Emergency (ER) | payer MEDICARE, MEDICAID ==
[2017-10-02] MEDS ORDERED: Nitroglycerin TAB 0.4 MG* 0.4 MG TAB SL ONE (19:55)
[2017-10-02 20:15] LABS: ABS Basophils 0.1 10^3/ul (0-0.2); ABS Eosinophils 0.3 10^3/ul (0-0.6); ABS Lymphocytes 1.6 10^3/ul (1.0-4.8); ABS Monocytes 0.8 10^3/ul (0-0.8); ABS Neutrophils 4.3 10^3/ul (1.5-7.7); ABS Nucleated RBC 0 10^3/ul; Eosinophil % 3.8 % (0-6); Hematocrit 40 % (35-47); Hemoglobin 13.5 g/dl (12.0-16.0); Mean Corpuscular HGB Conc 34 g/dl (31-36); Mean Corpuscular Hemoglobin 32 pg (27-31); Mean Corpuscular Volume 94 fL (80-97); Mean Platelet Volume 7 um3 (7.4-10.4); Nucleated Red Blood Cells % 0; Platelet Count 185 10^3/ul (150-450); Red Blood Count 4.25 10^6/ul (4.0-5.4); Red Cell Distribution Width 13 % (10.5-15)
[2017-10-02 20:33] LABS: INR 0.94 (0.77-1.02)
--- NOTE | 2017-10-02 21:28 | RAD ---
INDICATION: Chest pain COMPARISON: Most recent comparison chest x-rays March 01, 2017 TECHNIQUE: Single AP portable view of the chest was obtained. FINDINGS: Image quality is compromised due to the relative inferiority of a portable chest x-ray. Similar to the prior chest x-ray there is mild cardiomegaly. The pulmonary vasculature appears indistinct and mildly engorged. There is no focal mass or consolidation. There is no definite pleural effusion. Visualized bones are normal for the patient's age. IMPRESSION: In the correct clinical setting chest x-ray findings could be compatible with cardiogenic pulmonary edema.
[2017-10-03 00:20] VITALS: BP 124/66
--- NOTE | 2017-10-03 13:49 | ED ---
Corey Sam Thomas, scribed for Olayinka Urias MD on 10/02/17 at 1954 . HPI Chest Pain <HillLázaro A - Last Filed: 10/03/17 00:03> - HPI Summary HPI Summary: The patient is a 72 year old female brought by her caregiver to the emergency department with chest pain. The patient was noted to have chest pain today at 18 :30 after she ate Pakistani food. The pain is rated 3/10. The pain is worsened with breathing. Per caregiver, the patient was breathing heavily when she first complained of chest pain. The patient also has a rash to her trunk. - History of Current Complaint Hx Obtained From: Family/Robotics Technician Onset/Duration: Started Minutes Ago, Still Present Timing: Constant Current Severity: Moderate Pain Intensity: 3 Pain Scale Used: 0-10 Numeric Aggravating Factor(s): Deep Breaths Alleviating Factor(s): Nothing Associated Signs and Symptoms: Positive: Chest Pain, Other: - Heavy breathing, rash Related History: Obesity <Olayinka Urias - Last Filed: 10/03/17 13:49> - History of Current Complaint Chief Complaint: EDChestPainROMI Time Seen by Provider: 10/02/17 19:45 - Allergy/Home Medications Allergies/Adverse Reactions: Allergies Allergy/AdvReac Type Severity Reaction Status Date / Time carbamazepine [From Tegretol] Allergy Vomiting Verified 10/02/17 19:29 codeine Allergy Unknown Verified 10/02/17 19:29 Reaction Details PMH/Surg Hx/FS Hx/Imm Hx Endocrine/Hematology History: Denies: Hx Anticoagulant Therapy, Hx Blood Disorders, Hx Diabetes, Hx Thyroid Disease, Hx Anemia Cardiovascular History: Reports: Hx Hypercholesterolemia - takes statin Denies: Hx Aneurysm, Hx Deep Vein Thrombosis, Hx Embolism, Hx Hypertension, Hx Myocardial Infarction GI History: Reports: Hx Diverticulosis Denies: Hx Jaundice Musculoskeletal History: Reports: Hx Arthritis, Other Musculoskeletal History - Hx osteopenia Neurological History: Reports: Hx Developmental Delay, Hx Seizures - zonegran and topamax Psychiatric History: Reports: Hx Anxiety, Other Psychiatric Issues/Disorders - mood d/o - takes multiple meds - Surgical History Surgery Procedure, Year, and Place: bilat knee replacements Infectious Disease History: No Infectious Disease History: Denies: Hx Clostridium Difficile, Hx Hepatitis, Hx Human Immunodeficiency Virus (HIV), Hx of Known/Suspected MRSA, Hx Shingles, Hx Tuberculosis, Hx Known/ Suspected VRE, History Other Infectious Disease, Traveled Outside the [place] in Last 30 Days - Family History Known Family History: Positive: Unknown - Unknown pt has developmental delays Family History: patient living in assisted unable provide family history - Social History Alcohol Use: None Substance Use Type: Reports: None Smoking Status (MU): Never Smoked Tobacco <Olayinka Urias - Last Filed: 10/03/17 13:49> Review of Systems Negative: Fever Positive: Chest Pain Positive: Other - Breathing heavily Positive: Rash All Other Systems Reviewed And Are Negative: Yes <Olayinka Urias - Last Filed: 10/03/17 13:49> Physical Exam Vital Signs On Initial Exam: Initial Vitals Temp Pulse Resp BP Pulse Ox 37.2 C 71 20 144/72 95 10/02/17 19:26 10/02/17 19:26 10/02/17 19:26 10/02/17 19:26 10/02/17 19:26 <Lázaro Alejandre - Last Filed: 10/03/17 00:03> - Summary Physical Exam Summary: Appearance: The patient is well-nourished in no acute distress and in no acute pain. Skin: The skin is warm and dry and skin color reflects adequate perfusion. HEENT: ~The head is normocephalic and atraumatic. The pupils are equal and reactive. The conjunctivae are clear and without drainage. ~Nares are patent and without drainage. Mouth reveals moist mucous membranes and the throat is without erythema and exudate. The external ears are intact. The ear canals are patent and without drainage. The tympanic membranes are intact. Neck: the neck is supple with full range of motion and non-tender. There are no carotid bruits. ~There is no neck vein distension. Respiratory: The chest is a little tender over the sternum. There are crackles in bilateral bases of the lungs. Cardiovascular: Heart is regular rate and rhythm. ~There is no murmur or rub auscultated. There is slight pitting edema in both ankles. Pulses are symmetrical and equal. Abdomen: The abdomen is soft and non-tender. ~There are normal bowel sounds heard in all four quadrants and there is no organomegaly palpated. Musculoskeletal: There is no back tenderness noted. ~Extremities are non-tender with full range of motion. ~There is good capillary refill. There is slight pitting edema in both ankles. No calf tenderness elicited. Neurological: Patient is alert and oriented to person, place and time. ~The patient has symmetrical motor strength in all four extremities. ~Cranial nerves are grossly intact. Deep tendon reflexes are symmetrical and equal in all four extremities. Psychiatric: The patient has an appropriate affect and does not exhibit any anxiety or depression. Triage Information Reviewed: Yes Vital Signs On Initial Exam: Initial Vitals Temp Pulse Resp BP Pulse Ox 98.9 F 71 20 144/72 95 10/02/17 19:26 10/02/17 19:26 10/02/17 19:26 10/02/17 19:26 10/02/17 19:26 Vital Signs Reviewed: Yes <Olayinka Urias - Last Filed: 10/03/17 13:49> Diagnostics - Vital Signs Vital Signs Temp Pulse Resp BP Pulse Ox 10/02/17 20:00 73 17 140/63 94 10/02/17 19:34 72 144/72 95 10/02/17 19:26 37.2 C 71 20 144/72 95 - Laboratory Lab Results: Lab Results 10/02/17 10/02/17 10/02/17 Range/Units 20:00 20:00 20:00 WBC 7.0 (3.5-10.8) 10^3/ul RBC 4.25 (4.0-5.4) 10^6/ul Hgb 13.5 (12.0-16.0) g/dl Hct 40 (35-47) % MCV 94 (80-97) fL MCH 32 H (27-31) pg MCHC 34 (31-36) g/dl RDW 13 (10.5-15) % Plt Count 185 (150-450) 10^3/ul MPV 7 L (7.4-10.4) um3 Neut % (Auto) 60.7 (38-83) % Lymph % (Auto) 23.0 L (25-47) % Simpson % (Auto) 11.5 H (0-7) % Eos % (Auto) 3.8 (0-6) % Baso % (Auto) 1.0 (0-2) % Absolute Neuts (auto) 4.3 (1.5-7.7) 10^3/ul Absolute Lymphs (auto) 1.6 (1.0-4.8) 10^3/ul Absolute Monos (auto) 0.8 (0-0.8) 10^3/ul Absolute Eos (auto) 0.3 (0-0.6) 10^3/ul Absolute Basos (auto) 0.1 (0-0.2) 10^3/ul Absolute Nucleated RBC 0 10^3/ul Nucleated RBC % 0 INR (Anticoag Therapy) (0.77-1.02) D-Dimer, Quantitative (Less Than 230) ng/mL Sodium 139 (133-145) mmol/L Potassium 3.5 (3.5-5.0) mmol/L Chloride 108 (101-111) mmol/L Carbon Dioxide 25 (22-32) mmol/L Anion Gap 6 (2-11) mmol/L BUN 19 (6-24) mg/dL Creatinine 0.87 (0.51-0.95) mg/dL Est GFR ( Amer) 82.3 (>60) Est GFR (Non-Af Amer) 64.0 (>60) BUN/Creatinine Ratio 21.8 H (8-20) Glucose 129 H (70-100) mg/dL Lactic Acid (0.5-2.0) mmol/L Calcium 9.2 (8.6-10.3) mg/dL Total Bilirubin 0.30 (0.2-1.0) mg/dL AST 17 (13-39) U/L ALT 17 (7-52) U/L Alkaline Phosphatase 80 (34-104) U/L Troponin I 0.00 (<0.04) ng/mL B-Natriuretic Peptide 66 ( - 100) pg/mL Total Protein 7.4 (6.4-8.9) g/dL Albumin 4.2 (3.2-5.2) g/dL Globulin 3.2 (2-4) g/dL Albumin/Globulin Ratio 1.3 (1-3) 10/02/17 10/02/17 10/02/17 Range/Units 20:00 20:00 22:39 WBC (3.5-10.8) 10^3/ul RBC (4.0-5.4) 10^6/ul Hgb (12.0-16.0) g/dl Hct (35-47) % MCV (80-97) fL MCH (27-31) pg MCHC (31-36) g/dl RDW (10.5-15) % Plt Count (150-450) 10^3/ul MPV (7.4-10.4) um3 Neut % (Auto) (38-83) % Lymph % (Auto) (25-47) % Simpson % (Auto) (0-7) % Eos % (Auto) (0-6) % Baso % (Auto) (0-2) % Absolute Neuts (auto) (1.5-7.7) 10^3/ul Absolute Lymphs (auto) (1.0-4.8) 10^3/ul Absolute Monos (auto) (0-0.8) 10^3/ul Absolute Eos (auto) (0-0.6) 10^3/ul Absolute Basos (auto) (0-0.2) 10^3/ul Absolute Nucleated RBC 10^3/ul Nucleated RBC % INR (Anticoag Therapy) 0.94 (0.77-1.02) D-Dimer, Quantitative 396 H (Less Than 230) ng/mL Sodium (133-145) mmol/L Potassium (3.5-5.0) mmol/L Chloride (101-111) mmol/L Carbon Dioxide (22-32) mmol/L Anion Gap (2-11) mmol/L BUN (6-24) mg/dL Creatinine (0.51-0.95) mg/dL Est GFR ( Amer) (>60) Est GFR (Non-Af Amer) (>60) BUN/Creatinine Ratio (8-20) Glucose (70-100) mg/dL Lactic Acid 0.9 (0.5-2.0) mmol/L Calcium (8.6-10.3) mg/dL Total Bilirubin (0.2-1.0) mg/dL AST (13-39) U/L ALT (7-52) U/L Alkaline Phosphatase (34-104) U/L Troponin I 0.00 (<0.04) ng/mL B-Natriuretic Peptide ( - 100) pg/mL Total Protein (6.4-8.9) g/dL Albumin (3.2-5.2) g/dL Globulin (2-4) g/dL Albumin/Globulin Ratio (1-3) Result Diagrams: 10/02/17 20:00 10/02/17 20:00 Lab Statement: Any lab studies that have been ordered have been reviewed, and results considered in the medical decision making process. <Lázaro Alejandre - Last Filed: 10/03/17 00:03> - Vital Signs Vital Signs Temp Pulse Resp BP Pulse Ox 10/02/17 19:26 98.9 F 71 20 144/72 95 - Laboratory Lab Results: Lab Results 10/02/17 10/02/17 10/02/17 Range/Units 20:00 20:00 20:00 WBC 7.0 (3.5-10.8) 10^3/ul RBC 4.25 (4.0-5.4) 10^6/ul Hgb 13.5 (12.0-16.0) g/dl Hct 40 (35-47) % MCV 94 (80-97) fL MCH 32 H (27-31) pg MCHC 34 (31-36) g/dl RDW 13 (10.5-15) % Plt Count 185 (150-450) 10^3/ul MPV 7 L (7.4-10.4) um3 Neut % (Auto) 60.7 (38-83) % Lymph % (Auto) 23.0 L (25-47) % Simpson % (Auto) 11.5 H (0-7) % Eos % (Auto) 3.8 (0-6) % Baso % (Auto) 1.0 (0-2) % Absolute Neuts (auto) 4.3 (1.5-7.7) 10^3/ul Absolute Lymphs (auto) 1.6 (1.0-4.8) 10^3/ul Absolute Monos (auto) 0.8 (0-0.8) 10^3/ul Absolute Eos (auto) 0.3 (0-0.6) 10^3/ul Absolute Basos (auto) 0.1 (0-0.2) 10^3/ul Absolute Nucleated RBC 0 10^3/ul Nucleated RBC % 0 INR (Anticoag Therapy) (0.77-1.02) D-Dimer, Quantitative (Less Than 230) ng/mL Sodium 139 (133-145) mmol/L Potassium 3.5 (3.5-5.0) mmol/L Chloride 108 (101-111) mmol/L Carbon Dioxide 25 (22-32) mmol/L Anion Gap 6 (2-11) mmol/L BUN 19 (6-24) mg/dL Creatinine 0.87 (0.51-0.95) mg/dL Est GFR ( Amer) 82.3 (>60) Est GFR (Non-Af Amer) 64.0 (>60) BUN/Creatinine Ratio 21.8 H (8-20) Glucose 129 H (70-100) mg/dL Lactic Acid (0.5-2.0) mmol/L Calcium 9.2 (8.6-10.3) mg/dL Total Bilirubin 0.30 (0.2-1.0) mg/dL AST 17 (13-39) U/L ALT 17 (7-52) U/L Alkaline Phosphatase 80 (34-104) U/L Troponin I 0.00 (<0.04) ng/mL B-Natriuretic Peptide 66 ( - 100) pg/mL Total Protein 7.4 (6.4-8.9) g/dL Albumin 4.2 (3.2-5.2) g/dL Globulin 3.2 (2-4) g/dL Albumin/Globulin Ratio 1.3 (1-3) 10/02/17 10/02/17 10/02/17 Range/Units 20:00 20:00 22:39 WBC (3.5-10.8) 10^3/ul RBC (4.0-5.4) 10^6/ul Hgb (12.0-16.0) g/dl Hct (35-47) % MCV (80-97) fL MCH (27-31) pg MCHC (31-36) g/dl RDW (10.5-15) % Plt Count (150-450) 10^3/ul MPV (7.4-10.4) um3 Neut % (Auto) (38-83) % Lymph % (Auto) (25-47) % Simpson % (Auto) (0-7) % Eos % (Auto) (0-6) % Baso % (Auto) (0-2) % Absolute Neuts (auto) (1.5-7.7) 10^3/ul Absolute Lymphs (auto) (1.0-4.8) 10^3/ul Absolute Monos (auto) (0-0.8) 10^3/ul Absolute Eos (auto) (0-0.6) 10^3/ul Absolute Basos (auto) (0-0.2) 10^3/ul Absolute Nucleated RBC 10^3/ul Nucleated RBC % INR (Anticoag Therapy) 0.94 (0.77-1.02) D-Dimer, Quantitative 396 H (Less Than 230) ng/mL Sodium (133-145) mmol/L Potassium (3.5-5.0) mmol/L Chloride (101-111) mmol/L Carbon Dioxide (22-32) mmol/L Anion Gap (2-11) mmol/L BUN (6-24) mg/dL Creatinine (0.51-0.95) mg/dL Est GFR ( Amer) (>60) Est GFR (Non-Af Amer) (>60) BUN/Creatinine Ratio (8-20) Glucose (70-100) mg/dL Lactic Acid 0.9 (0.5-2.0) mmol/L Calcium (8.6-10.3) mg/dL Total Bilirubin (0.2-1.0) mg/dL AST (13-39) U/L ALT (7-52) U/L Alkaline Phosphatase (34-104) U/L Troponin I 0.00 (<0.04) ng/mL B-Natriuretic Peptide ( - 100) pg/mL Total Protein (6.4-8.9) g/dL Albumin (3.2-5.2) g/dL Globulin (2-4) g/dL Albumin/Globulin Ratio (1-3) Result Diagrams: 10/02/17 20:00 10/02/17 20:00 Lab Statement: Any lab studies that have been ordered have been reviewed, and results considered in the medical decision making process. - Radiology CXR Xray Interpretation: Positive (See Comments) - In the correct clinical setting chest x-ray findings could be compatible with cardiogenic pulmonary edema. Dr. Urias has reviewed this report. Radiology Interpretation Completed By: Radiologist - EKG 19:37 Cardiac Rate: NL EKG Rhythm: Sinus Rhythm - at 72 BPM EKG Interpretation: Horizontal axis <Olayinka Urias - Last Filed: 10/03/17 13:49> Re-Evaluation - Re-Evaluation First Eval Change: Improved - Pt resting comfortably in bed. pt repeat Troponin negative. pt asymptomatic. Plan for symptomatic tx with close f/u. <Lázaro Alejandre - Last Filed: 10/03/17 00:03> Chest Pain Course/Dx <Lázaro Alejandre - Last Filed: 10/03/17 00:03> - Course Course Of Treatment: Ms. Moore C/O'd CP last night that went away and again today. She is a very poor historian and it is difficult to characterize the pain. She was worked up with two troponins which were both 0 and her ecg was WNL. Her d-dimer was marginally elevated which, given the fact that the pain occurred and then resolved and occurred again, I think rules out a PE. <Olayinka Urias - Last Filed: 10/03/17 13:49> - Diagnoses Provider Diagnoses: Chest pain Discharge <Lázaro Alejandre - Last Filed: 10/03/17 00:03> - Discharge Plan Discharge Disposition Comment: Signed out to Dr. Alejandre pending repeat troponin <Olayinka Urias - Last Filed: 10/03/17 13:49> - Discharge Plan Condition: Stable Disposition: HOME Patient Education Materials: Chest Pain (ED) Referrals: Selma Ley MD [Primary Care Provider] - 3 Days Additional Instructions: Follow up with your primary care physician in three days. Return to the emergency department for any new or worsening symptoms. The documentation as recorded by the Corey stewart Thomas accurately reflects the service I personally performed and the decisions made by me, Olayinka Urias MD.
== END 2017-10-03 00:20 | disposition home or self-care (01) ==
LOC: ED 19:21
DX: R07.9 Chest pain, unspecified (principal); Z88.8 Allergy status to other drugs, medicaments and biological substances; Z88.5 Allergy status to narcotic agent
CPT/HCPCS: 36415; 71045; 80053; 83605; 83880; 84484; 85025; 85379; 85610; 93005; 99283; A9270-GY

== ENCOUNTER 2017-12-19 08:29 | Emergency (ER) | payer MEDICARE, MEDICAID ==
[2017-12-19 08:54] VITALS: BP 139/57
--- NOTE | 2017-12-19 09:41 | RAD ---
Indication: Chest pain, shortness of breath. Fall striking RIGHT upper posterior ribs and shoulder. Comparison: October 02, 2017 Technique: 3 view RIGHT rib series Report: Negative for RIGHT rib fracture, pulmonary contusion, pleural effusion, or pneumothorax. IMPRESSION: Negative RIGHT rib series.
--- NOTE | 2017-12-19 09:44 | RAD ---
Indication: RIGHT shoulder and rib pain post fall. Comparison: January 28, 2017 chest radiograph. Technique: Internal and external rotation AP and scapular Y views RIGHT shoulder Report: Normal acromioclavicular joint alignment. Mild acromioclavicular osteophytosis and suggestion of accessory ossicle. Superior subluxation of the humeral head favoring presence of rotator cuff pathology. Mild glenohumeral joint osteophytosis. Negative for stigmata of calcific tendinopathy. Unremarkable soft tissue contours. IMPRESSION: Negative for fracture or dislocation. Degenerative arthropathy.
--- NOTE | 2017-12-19 09:56 | UC ---
Theron Sam Gabriel, [facility] on 12/19/17 at 0856 . Back Pain HPI - HPI Summary HPI Summary: This patient is a 72 year old F presenting to [facility] [place] accompanied by a health aide s/p fall that occurred this morning at 0715. The aide reports that she hit her right shoulder blade is c/o back pain. The patient rates the pain 5/10 in severity. LEVEL 5 CAVEAT: Exam limited due to the patient being nonverbal. MD note: Vital signs stable; pt is nonverbal. Evidence of a 8mm abrasion over the area of the posterior thorax on the right there is mild TTP to this area and the right shoulder. Xrays ordered. Visit history seizures, osteopenia, multiple medications, and nonverbal. Nurse note: Patient was doing laundry this morning around 7:15. She went to grab her walker and stumbled. She fell to the floor landing on her bottom and hit the back of her right shoulder on the edge of the door. Patient did not hit her head. Patient was seen by RN at her living facility, who suggested she be seen at Urgent Care because of her history of osteoporosis. - History of Current Complaint Chief Complaint: UCTrauma Stated Complaint: BACK INJURY Time Seen by Provider: 12/19/17 08:47 Hx Obtained From: Patient, Family/Ship Scraper Hx From Patient Unobtainable Due To: Other - non verbal Onset/Duration: Sudden Onset, Still Present Timing: Constant Severity Initially: Moderate Severity Currently: Moderate Pain Intensity: 5 Pain Scale Used: 0-10 Numeric Back Pain: Is Diffuse - Allergies/Home Medications Allergies/Adverse Reactions: Allergies Allergy/AdvReac Type Severity Reaction Status Date / Time Morpholine Analogues Allergy Intermediate Rash Verified 12/19/17 08:47 Opioids - Morphine Analogues Allergy Intermediate Rash Verified 12/19/17 08:47 carbamazepine [From Tegretol] Allergy Vomiting Verified 12/19/17 08:45 codeine Allergy Rash Verified 12/19/17 08:45 Home Medications: Home Medications Amoxicillin PO (*) [Amoxicillin 500 MG CAP*] 4 12/19/17 [History] Bisacodyl SUPP* [Dulcolax Supp*] 1 12/19/17 [History] Mag Hydrox/Aluminum Hyd/Simeth [Maalox Advanced Suspension] 2 12/19/17 [History] Menthol/Zinc Oxide [Gold Alves Medicated Body Powd] 1 12/19/17 [History] Sodium Phosphate ADULT ENEMA* [Fleet Enema*] 1 12/19/17 [History] PMH/Surg Hx/FS Hx/Imm Hx GI/ History: Diverticulitis, Other Other GI/ History: urinary incontinence Neurological History: Seizures, Other - DDD Other Neurological History: DDD Other History Of: Negative For: Anticoagulant Therapy - Surgical History Surgical History: Yes Surgery Procedure, Year, and Place: bilat knee replacements - Family History Known Family History: Positive: Unknown - Unknown pt has developmental delays Family History: patient living in [facility] unable provide family history - Social History Lives: [facility] Alcohol Use: None Substance Use Type: None Smoking Status (MU): Never Smoked Tobacco Review of Systems Musculoskeletal: Other: - back pain All Other Systems Reviewed And Are Negative: No - Comments Additional Review of Systems Comments: LEVEL 5 CAVEAT: Exam limited due to the patient being nonverbal. Physical Exam - Summary Physical Exam Summary: Appearance: The patient is well-appearing, is in no pain distress, and is well- nourished. Pt is sitting comfortably in the wheel chair without apparent distress Eyes: Conjunctiva are clear. ENT: The hearing is grossly normal, the pharynx is normal, and the TMs are normal. There is no muffled or hoarse voice. Neck: The neck is supple and there is no lymphadenopathy. Respiratory: The chest is nontender. The lungs are clear, there are normal breath sounds, and there is no respiratory distress. Cardiovascular: Heart is regular rate and rhythm. There is no murmur. Abdomen: The abdomen is soft and nontender. There is no organomegaly. Back: SHOWS TWO SCRATCHES, ONE IS 3CM LING OVER THE RIGHT POSTERIOR UPPER THORAX AND ONE IS DIAGONAL SCRATCH THAT IS APPROXIMATELY 8CM LONG OVER THE POSTERIOR AXILLARY LINE ON THE RIGHT. NO EVIDENT CREPITUS. NO POINT TENDERNESS OVER THE SPINE. NO EVIDENT RESPONSE TO PAIN. WHEN THE TWO AREAS OF ABRASION ARE PALPATED. NO C SPINE TENDERNESS TO PALPATION. Bowel sounds: present Musculoskeletal: Strength is intact. The patient moves all extremities. Neurological: The patient is alert. Skin: Negative for rashes. Triage Information Reviewed: Yes Completion Of Physical Exam Limited Due To: Other - non verbal Vital Signs: Initial Vital Signs Temp 99.8 F 12/19/17 08:46 Pulse 70 12/19/17 08:46 Resp 20 12/19/17 08:46 BP 139/57 12/19/17 08:46 Pulse Ox 99 12/19/17 08:46 Vital Signs Reviewed: Yes Diagnostics - Radiology Rib Xray Radiology Interpretation Completed By: Radiologist - Negative RIGHT rib series. Dr. Alejo has reviewed this report. Shoulder Xray Radiology Interpretation Completed By: Radiologist - Negative for fracture or dislocation. Degenerative arthropathy. Dr. Alejo has reviewed this report. Back Pain Course/Dx - Course Course Of Treatment: Pt brought for evaluation of back injury after fall when she scraped her right back on a door. She has a seizure disorder, apparently well controlled. Pt examination shows two superficial abrasions, X-rays shows no fracture to the shoulder or the ribs. Pt appears comfortable; she walks with a walker without pain, and breaths normally. Medications have been included in the original chart and reviewed. - Differential Dx/Diagnosis Differential Diagnosis/HQI/PQRI: Other - fracture vs contusion vs abrasion Provider Diagnoses: two superficial abrasions on the right posterior thorax Discharge - Sign-Out/Discharge Documenting (check all that apply): Discharge/Admit/Transfer - Discharge Plan Condition: Stable Disposition: HOME Patient Education Materials: Abrasion (ED) Referrals: Selma Ley MD [Primary Care Provider] - Additional Instructions: PLEASE SEEK CARE AT THE EMERGENCY DEPARTMENT IF SYMPTOMS WORSEN OR IF NEW SYMPTOMS DEVELOP. FOLLOW UP WITH YOUR PRIMARY CARE PHYSICIAN, as needed. WE DISCUSSED: 1. You have two abrasions of your right back. 2. There is no worse injury; no broken bones in your chest or shoulder. 3. Watch to scratches to make sure they don't get infected. They shouldn't be a problem. 4. Call us for any questions or concerns. - Billing Disposition and Condition Condition: STABLE Disposition: HOME The documentation as recorded by the Theron stewart Gabriel accurately reflects the service I personally performed and the decisions made by me, Clifton Alejo MD.
== END 2017-12-19 09:50 | disposition home or self-care (01) ==
LOC: UCEAST 08:29
DX: S20.411A Abrasion of right back wall of thorax, initial encounter (principal); W18.30XA Fall on same level, unspecified, initial encounter; Y93.89 Activity, other specified; Y92.199 Unspecified place in other specified residential institution as the place of occurrence of the external cause; K57.92 Diverticulitis of intestine, part unspecified, without perforation or abscess without bleeding; Z96.653 Presence of artificial knee joint, bilateral; Z88.5 Allergy status to narcotic agent
CPT/HCPCS: 99212; G0463

== ENCOUNTER 2017-12-29 06:30 | Emergency (ER) | payer MEDICARE, MEDICAID ==
[2017-12-29] MEDS ORDERED: Acetaminophen TAB* 325 MG PO ONE (07:03)
--- NOTE | 2017-12-29 07:05 | ED ---
Head Injury - HPI Summary HPI Summary: Bruce. is a 72y.o female who presents to the ER for evaluation after a fall that occurred around 0530 this a.m. Pt. resides at the [facility] with a history of MR. reportedly tripped over a carpet in her room this morning and fell, striking the back of her head. Fall was witnessed. No LOC. Pt. c/o head and low back pain. No seizure activity. newspaper correspondent present and states that pt. has been more unsteady on her feet over the last few days. Denies history of recent illness, fever, cough, abd. pain, N/V/D. Has had a good appetite and has been mentating at baseline. Symptoms are moderate in severity. Movement makes symptoms worse. Rest makes symptoms better. - History Of Current Complaint Chief Complaint: EDHeadInjury Stated Complaint: FALL Time Seen by Provider: 12/29/17 06:33 Hx Obtained From: Patient, Family/Corn Detasseler Pain Intensity: 3 - Allergies/Home Medications Allergies/Adverse Reactions: Allergies Allergy/AdvReac Type Severity Reaction Status Date / Time Morpholine Analogues Allergy Intermediate Rash Verified 12/29/17 07:27 Opioids - Morphine Analogues Allergy Intermediate Rash Verified 12/29/17 07:27 carbamazepine [From Tegretol] Allergy Vomiting Verified 12/29/17 07:27 codeine Allergy Rash Verified 12/29/17 07:27 Home Medications: Home Medications Cholecalciferol TAB* [Vitamin D TAB*] 1,000 unit PO EVERY OTHER DAY 12/29/17 [ History Confirmed 12/29/17] Magnesium Hydroxide LIQ* [Milk of Magnesia LIQ*] 30 ml PO DAILY PRN 12/29/17 [ History Confirmed 12/29/17] Pyridoxine TAB* [Vitamin B6 TAB*] 100 mg PO DAILY 12/29/17 [History Confirmed ] Senna/Docusate (NF) [Sennokot-S] 1 tab PO BEDTIME 12/29/17 [History Confirmed ] risperiDONE TAB* [RisperDAL*] 0.5 mg PO DAILY PRN 12/29/17 [History Confirmed ] PMH/Surg Hx/FS Hx/Imm Hx Previously Healthy: Yes Endocrine/Hematology History: Denies: Hx Anticoagulant Therapy, Hx Blood Disorders, Hx Diabetes, Hx Thyroid Disease, Hx Anemia Cardiovascular History: Reports: Hx Hypercholesterolemia - takes statin Denies: Hx Aneurysm, Hx Deep Vein Thrombosis, Hx Embolism, Hx Hypertension, Hx Myocardial Infarction GI History: Reports: Hx Diverticulosis Denies: Hx Jaundice Musculoskeletal History: Reports: Hx Arthritis, Other Musculoskeletal History - Hx osteopenia Neurological History: Reports: Hx Developmental Delay, Hx Seizures - zonegran and topamax Psychiatric History: Reports: Hx Anxiety, Other Psychiatric Issues/Disorders - mood d/o - takes multiple meds - Surgical History Surgery Procedure, Year, and Place: bilat knee replacements Infectious Disease History: No Infectious Disease History: Denies: Hx Clostridium Difficile, Hx Hepatitis, Hx Human Immunodeficiency Virus (HIV), Hx of Known/Suspected MRSA, Hx Shingles, Hx Tuberculosis, Hx Known/ Suspected VRE, History Other Infectious Disease, Traveled Outside the [place] in Last 30 Days - Family History Known Family History: Positive: Unknown - Unknown pt has developmental delays Family History: patient living in [facility] unable provide family history - Social History Occupation: Unemployed Lives: Assisted Living Alcohol Use: None Substance Use Type: Reports: None Smoking Status (MU): Never Smoked Tobacco Review of Systems Constitutional: Negative Negative: Fever, Chills Eyes: Negative ENT: Negative Cardiovascular: Negative Negative: Palpitations, Chest Pain Respiratory: Negative Negative: Shortness Of Breath, Cough Gastrointestinal: Negative Negative: Abdominal Pain, Vomiting, Diarrhea, Nausea Genitourinary: Negative Positive: Other - Low back pain Skin: Negative Positive: Headache. Negative: Weakness, Paresthesia, Numbness, Syncope, Slurred Speech All Other Systems Reviewed And Are Negative: Yes Physical Exam Triage Information Reviewed: Yes Vital Signs On Initial Exam: Initial Vitals Temp Pulse Resp BP Pulse Ox 98.6 F 63 16 144/72 97 12/29/17 06:33 12/29/17 06:33 12/29/17 06:33 12/29/17 06:33 12/29/17 06:33 Vital Signs Reviewed: Yes Appearance: Positive: Well-Appearing - Pt. sitting up in bed in NAD. Very verbal. newspaper correspondent present. Skin: Positive: Warm, Dry Head/Face: Positive: Other - Large contusion to the posterior scalp. No laceration. Eyes: Positive: Normal, EOMI, GIOVANNI Neck: Positive: Supple, Nontender Respiratory/Lung Sounds: Positive: Clear to Auscultation, Breath Sounds Present Cardiovascular: Positive: Normal, RRR Abdomen Description: Positive: Nontender, Soft Musculoskeletal: Positive: Other - Mild low back pain with movment. No vertebral midline tenderness diffusely. NO ecchymosis. Neurological: Positive: Normal, CN Intact II-III Psychiatric: Positive: Affect/Mood Appropriate - Kalen Coma Scale Best Eye Response: 4 - Spontaneous Best Motor Response: 6 - Obeys Commands Best Verbal Response: 5 - Oriented Coma Scale Total: 15 Diagnostics - Vital Signs Vital Signs Temp Pulse Resp BP Pulse Ox 12/29/17 06:33 98.6 F 63 16 144/72 97 - Laboratory Result Diagrams: 12/29/17 07:00 12/29/17 07:00 Lab Statement: Any lab studies that have been ordered have been reviewed, and results considered in the medical decision making process. Head Injury Course/Dx Course Of Treatment: Pt. presenting to the ER for a probable mechanical fall. She is afebrile with stable vital signs. O2 saturation is 97% on RA which is normal. Given history or new instability will check basic labs and urine. Imaging ordered. Overall pt. is well appearing and at her baseline. ECG shows a sinus rhythmat at rate of 65 bpm, indeterminate axis, no ST elevation. CBC and CMP are unremarkable. Head and neck CT are negative for acute abnormalities , per radiology. Urinalysis is contaminated with epi cells but does show small blood and leukocytes. Results discussed with respiratory care faculty. She states pt. has no been c/o any urinary symptoms and there have been no fevers or N/V. Will send for culture and wait to treat. Advised close f.u with PCP. Tylenol for pain as directed. Will call if culture is positive. To return to ER if sxs change or worsen. - Diagnoses Differential Diagnosis/HQI/PQRI: Cerebral Contusion, Cervical Sprain, Concussion Without LOC, Contusion, Hematoma, Intracranial Bleed, Skull Fracture Provider Diagnoses: Fall, Head contusion, Lumbar strain Discharge - Sign-Out/Discharge Documenting (check all that apply): Discharge/Admit/Transfer - Discharge Plan Condition: Good Disposition: HOME Patient Education Materials: Head Injury (ED), Low Back Strain (ED) Referrals: Selma Ley MD [Primary Care Provider] - Additional Instructions: Schedule a follow up appointment with PCP Tylenol for pain as directed Can ice affected areas intermittently Will call if urine culture comes back positive Return to ER if symptoms change or worsen - Billing Disposition and Condition Condition: GOOD Disposition: Home
[2017-12-29 07:14] LABS: ABS Basophils 0 10^3/ul (0-0.2); ABS Eosinophils 0.2 10^3/ul (0-0.6); ABS Lymphocytes 1.1 10^3/ul (1.0-4.8); ABS Monocytes 0.6 10^3/ul (0-0.8); ABS Neutrophils 4.1 10^3/ul (1.5-7.7); ABS Nucleated RBC 0 10^3/ul; Eosinophil % 3.7 % (0-6); Hematocrit 42 % (35-47); Hemoglobin 13.9 g/dl (12.0-16.0); Lymphocyte % 17.6 % (25-47); Mean Corpuscular HGB Conc 33 g/dl (31-36); Mean Corpuscular Hemoglobin 31 pg (27-31); Mean Corpuscular Volume 95 fL (80-97); Mean Platelet Volume 7.4 um3 (7.4-10.4); Nucleated Red Blood Cells % 0; Platelet Count 206 10^3/ul (150-450); Red Blood Count 4.46 10^6/ul (4.00-5.40); Red Cell Distribution Width 13 % (10.5-15)
--- NOTE | 2017-12-29 07:54 | RAD ---
HISTORY: fall, head trauma COMPARISONS: June 13, 2017 TECHNIQUE: Multiple contiguous axial CT scans were obtained of the head without intravenous contrast. FINDINGS: HEMORRHAGE/INFARCT: There is no hemorrhage or acute infarct. MASSES/SHIFT: There is no mass or shift. EXTRA-AXIAL SPACES: There are no extra-axial fluid collections. SULCI AND VENTRICLES: The sulci and ventricles are normal in size and position for the patient's stated age. CEREBRUM: There are no focal parenchymal abnormalities. BRAINSTEM: There are no focal parenchymal abnormalities. CEREBELLUM: There are no focal parenchymal abnormalities. VESSELS: The vessels are grossly normal. PARANASAL SINUSES: The paranasal sinuses are clear. ORBITS: The orbits are unremarkable. BONES AND SOFT TISSUE: There is soft tissue swelling along the left parietal scalp. OTHER: None IMPRESSION: NO ACUTE INTRACRANIAL PATHOLOGY.
--- NOTE | 2017-12-29 07:58 | RAD ---
HISTORY: fall, head trauma, left shoulder trauma COMPARISONS: June 13, 2017, thyroid FNA dated December 31, 2016 TECHNIQUE: Multiple contiguous axial CT scans were obtained of the cervical spine without intravenous contrast, with coronal and sagittal multiplanar reformations. FINDINGS: BRAIN: The visualized brain is unremarkable CENTRAL CANAL: Evaluation of the central canal is limited on CT technique; however, there is no obvious canalicular mass or epidural hemorrhage. ALIGNMENT: There is trace anterolisthesis of C3 on C4, C4-C5, and C7 on T1.. There is reversal of the normal cervical lordosis. VERTEBRAL BODIES: There is multilevel anterolateral marginal osteophyte formation. There is no displaced fracture. JOINTS: There is uncovertebral and facet osteoarthritis. There is osteoarthritis of the atlantoaxial articulation. MUSCULATURE: Unremarkable INTERVERTEBRAL DISCS: There is diffuse loss of intervertebral disc height. AXIAL IMAGES: C2-C3: There is right greater than left uncovertebral facet hypertrophy. There is moderate right neuroforaminal narrowing. There is no osseous central canal stenosis. C3-C4: There is severe right and moderate left neuroforaminal narrowing. There is no osseous central canal stenosis. C4-C5: There is bilateral uncovertebral and facet hypertrophy with severe right and moderate left neural foraminal narrowing. There is no osseous central canal stenosis. C5-C6: There is a broad-based disc osteophyte complex. There is right greater than left uncovertebral and facet hypertrophy. There is severe right neural foraminal narrowing. There is mild narrowing of the central canal. C6-C7: There is a broad-based disc osteophyte complex with bilateral uncovertebral hypertrophy. There is moderate bilateral neuroforaminal narrowing. There is moderate narrowing of the central canal. C7-T1: There is severe bilateral neuroforaminal narrowing. There is no osseous central canal stenosis. SOFT TISSUES: The visualized soft tissues of the neck are unremarkable. The prevertebral fat stripe is preserved. There is a 2.4 cm thyroid nodule on the right that corresponds to a previously biopsied nodule. OTHER: None. IMPRESSION: 1. DEGENERATIVE DISC DISEASE AND OSTEOARTHRITIS DESCRIBED ABOVE. 2. NO ACUTE OSSEOUS INJURY TO THE CERVICAL SPINE.
[2017-12-29 08:16] LABS: EGFR Non-African American 62.3 (>60)
--- NOTE | 2017-12-29 08:45 | RAD ---
INDICATION: Fall. Pain. COMPARISON: March 01, 2017 TECHNIQUE: An AP seated view was obtained. FINDINGS: Bones/Soft Tissues: There are no acute bony findings. Cardiomediastinal: The cardiomediastinal silhouette is normal. Lungs: There are no infiltrates. Pleura: There are no pleural effusions. Other: None IMPRESSION: NO ACTIVE DISEASE.
--- NOTE | 2017-12-29 08:50 | RAD ---
INDICATION: Fall COMPARISON: None TECHNIQUE: Routine PA, lateral, and oblique imaging was performed . FINDINGS: Bones: There are no acute bony findings. There are arthritic changes consisting of moderate facet arthropathy at L5-S1. There is advanced narrowing about L1-L2 and L5-S1 with endplate sclerosis and marginal osteophyte formation. There is spurring at the thoracolumbar junction. Alignment: Normal Disc spaces: The remaining disc spaces are well-maintained Soft tissues: There are no soft tissue abnormalities. IMPRESSION: MODERATE OSTEOARTHRITIS. NO ACUTE FINDINGS.
[2017-12-29 09:24] LABS: Urine Appearance Clear; Urine Blood 1+ (Negative); Urine Color Yellow; Urine Ketones Negative (Negative); Urine Protein Negative (Negative); Urine Specific Gravity 1.015 (1.010-1.030); Urine Urobilinogen Negative (Negative)
[2017-12-29 10:14] VITALS: BP 130/76
--- NOTE | 2017-12-31 08:45 | ED ---
Progress - Progress Note Progress Note: Patient's urine culture reveals 50-75,000 strep group B. Her urine culture contained epithelial cells as well as blood. Discussed with ROSENDA Berry at [facility] where patient resides. She states patient has been more steady on her feet since back home from ED and appears to be at baseline in regards to their initial concerns about her falling frequently. She also remains afebrile and has no complaints of urinary symptoms/frequent trips to bathroom. Discussed that with a low bacterial count and pt being asymptomatic, it would be best for patient to follow up with her PCP for further investigation as she may have a vaginal strep group B infection/ colonization contaminating her urine. She could also develop further into a UTI and discussed danger signs and symptoms to watch for with Kristi. If patient presents with these symptoms over the weekend they will return to the emergency department. Otherwise, she will call Dr. Venegas (pt's PCP) today to schedule follow-up early next week. Course/Dx - Course Course Of Treatment: Pt. presenting to the ER for a probable mechanical fall. She is afebrile with stable vital signs. O2 saturation is 97% on RA which is normal. Given history or new instability will check basic labs and urine. Imaging ordered. Overall pt. is well appearing and at her baseline. ECG shows a sinus rhythmat at rate of 65 bpm, indeterminate axis, no ST elevation. CBC and CMP are unremarkable. Head and neck CT are negative for acute abnormalities , per radiology. Urinalysis is contaminated with epi cells but does show small blood and leukocytes. Results discussed with doggy daycare activities director. She states pt. has no been c/o any urinary symptoms and there have been no fevers or N/V. Will send for culture and wait to treat. Advised close f.u with PCP. Tylenol for pain as directed. Will call if culture is positive. To return to ER if sxs change or worsen. - Diagnoses Provider Diagnoses: Fall, Head contusion, Lumbar strain Discharge - Sign-Out/Discharge Documenting (check all that apply): Post-Discharge Follow Up - Discharge Plan Condition: Good Disposition: HOME Patient Education Materials: Head Injury (ED), Low Back Strain (ED) Referrals: Selma Ley MD [Primary Care Provider] - Additional Instructions: Schedule a follow up appointment with PCP Tylenol for pain as directed Can ice affected areas intermittently Will call if urine culture comes back positive Return to ER if symptoms change or worsen - Billing Disposition and Condition Condition: GOOD Disposition: Home
== END 2017-12-29 10:14 | disposition home or self-care (01) ==
LOC: ED 06:30
DX: S00.93XA Contusion of unspecified part of head, initial encounter (principal); S39.012A Strain of muscle, fascia and tendon of lower back, initial encounter; M50.33 Other cervical disc degeneration, cervicothoracic region; W19.XXXA Unspecified fall, initial encounter; Y92.9 Unspecified place or not applicable; R31.9 Hematuria, unspecified
CPT/HCPCS: 36415; 70450; 71045; 72110; 72125; 80053; 81003; 81015; 84484; 85025; 87077; 87086; 99283; A9270-GY

== ENCOUNTER 2018-01-05 09:08 | Emergency (ER) | payer MEDICARE, MEDICAID ==
[2018-01-05] MEDS ORDERED: Acetaminophen TAB* 325 MG PO ONE (09:35)
[2018-01-05 10:01] LABS: ABS Basophils 0.1 10^3/ul (0-0.2); ABS Eosinophils 0.2 10^3/ul (0-0.6); ABS Lymphocytes 1.3 10^3/ul (1.0-4.8); ABS Monocytes 0.7 10^3/ul (0-0.8); ABS Neutrophils 4.3 10^3/ul (1.5-7.7); ABS Nucleated RBC 0 10^3/ul; Eosinophil % 3.6 % (0-6); Hematocrit 42 % (35-47); Hemoglobin 13.9 g/dl (12.0-16.0); Lymphocyte % 19.7 % (25-47); Mean Corpuscular HGB Conc 33 g/dl (31-36); Mean Corpuscular Hemoglobin 32 pg (27-31); Mean Corpuscular Volume 95 fL (80-97); Mean Platelet Volume 7.5 um3 (7.4-10.4); Nucleated Red Blood Cells % 0; Platelet Count 200 10^3/ul (150-450); Red Blood Count 4.39 10^6/ul (4.00-5.40); Red Cell Distribution Width 13 % (10.5-15); White Blood Count 6.6 10^3/ul (3.5-10.8)
[2018-01-05 10:10] LABS: INR 0.93 (0.77-1.02)
[2018-01-05 10:18] LABS: EGFR Non-African American 66.6 (>60)
--- NOTE | 2018-01-05 10:37 | RAD ---
Indication: Chest pain. Generalized illness. Comparison: December 29, 2017 Technique: Upright AP 1011 hours Report: Large body habitus limits image quality. Suboptimal inspiration with resulting crowding of the pulmonary markings and mild bilateral subsegmental atelectasis. No alveolar consolidation concerning for pneumonia. No focal pulmonary lesions, pleural effusions, or pneumothorax. The heart, pulmonary vasculature, and mediastinal contours are unremarkable accounting for suboptimal inspiration. Negative for free air beneath the diaphragm. IMPRESSION: Low lung volumes with subsegmental atelectasis.
[2018-01-05] MEDS ORDERED: NS 0.9% 1000 ML* 1,000 ML IV ONE (10:43)
--- NOTE | 2018-01-05 11:05 | RAD ---
INDICATION: Headaches COMPARISON: CT brain December 29, 2017 TECHNIQUE: Noncontrast axial source images were acquired from the skull base to the vertex. FINDINGS: Ventricles/sulci: The ventricles and cisterns are normal in size and configuration for age. Brain parenchyma: There is no focal parenchymal finding, evidence of intracranial mass, or intracranial mass effect. Intracranial hemorrhage:None. Extra-axial spaces: There are no abnormal extra axial fluid collections or evidence of extra-axial mass. Calvarium: There is no calvarial fracture or other calvarial abnormality. Scalp: There is no evidence of scalp or extracalvarial soft tissue abnormality. Paranasal sinuses/mastoid: The paranasal sinuses and mastoid air cells are clear. Other: None. IMPRESSION: NO ACUTE INTRACRANIAL FINDINGS
[2018-01-05] MEDS ORDERED: Iohexol 350* (CONTRAST) 500 ML MDV IV ONE (11:18)
--- NOTE | 2018-01-05 11:55 | RAD ---
INDICATION: Generalized weakness. Seizure. Chest pain. Elevated d-dimer. Assess for PE. COMPARISON: January 05, 2018 chest radiograph. TECHNIQUE: Multidetector CT images were obtained from the lung apices to the upper abdomen with 80 mL Omnipaque 350 IV contrast. Pulmonary angiogram protocol. Multiplanar reformation including with maximum intensity projection. REPORT: Motion artifact degrades image quality. Mild subsegmental atelectasis at the lingula and bilateral dependent lung bases. No suspicious focal pulmonary lesions, pleural effusion, pneumothorax. Negative for thoracic lymphadenopathy. Mild cardiomegaly with LEFT atrial enlargement. Negative for pericardial effusion. Normal diameter thoracic aorta. Motion artifact limits the CT pulmonary angiogram at the segmental and subsegmental levels. No compelling filling defects are identified within the pulmonary arteries to confirm presence of pulmonary embolism. Unremarkable Limited CT images through the upper abdomen. Negative for suspicious thoracic osseous lesions or fractures. Multilevel thoracic degenerative spondylosis. Disc space narrowing is severe at T6-T7. Multilevel reactive endplate sclerosis. IMPRESSION: 1. Moderately limited CT pulmonary angiogram due to motion artifact without compelling evidence for pulmonary embolism. 2. Mild alveolar consolidation at the lingula and bilateral dependent lower lung zones is most suspicious for subsegmental atelectasis.
[2018-01-05 12:03] LABS: Urine Appearance Clear; Urine Blood Negative (Negative); Urine Color Straw; Urine Ketones Negative (Negative); Urine Protein Negative (Negative); Urine Specific Gravity 1.004 (1.010-1.030); Urine Urobilinogen Negative (Negative)
[2018-01-05 12:53] VITALS: BP 107/80
--- NOTE | 2018-01-06 15:56 | ED ---
Pantera Sam Angela, scribed for Luther Nick MD on 01/05/18 at 0922 . Complex/Multi-Sys Presentation - HPI Summary HPI Summary: This pt is a 72 y/o female presenting to [facility] via EMS for general weakness. Pt resides at [facility] for her hx of developmental delay. Per EMS, pt was walking around when she suddenly was unable to walk and "shaking", staff at residence thought this might be a seizure. At baseline, pt is able to ambulate. EMS denies fall or head strike. Pt currently c/o right sided chest pain and headache. Her chest pain is not aggravated with palpation. PMHx includes developmental delay, seizures. HPI IS LIMITED DUE TO LEVEL 5 CAVEAT - pt with developmental delay. - History Of Current Complaint Time Seen by Provider: 01/05/18 09:11 Hx Obtained From: Patient, EMS Hx From Patient Unobtainable Due To: Other - Level 5 caveat - pt with developmental delay Onset/Duration: Lasting Hours Timing: Hours Severity Currently: Moderate Location: Pain At: - chest and head Aggravating Factor(s): unknown Alleviating Factor(s): unknown Associated Signs And Symptoms: Positive: Weakness, Headache, Chest Pain Related History: Other - limited hx due to pt with developmental delay - Allergies/Home Medications Allergies/Adverse Reactions: Allergies Allergy/AdvReac Type Severity Reaction Status Date / Time Morpholine Analogues Allergy Intermediate Rash Verified 12/29/17 07:27 Opioids - Morphine Analogues Allergy Intermediate Rash Verified 12/29/17 07:27 carbamazepine [From Tegretol] Allergy Vomiting Verified 12/29/17 07:27 codeine Allergy Rash Verified 12/29/17 07:27 Home Medications: Home Medications Amoxicillin PO (*) [Amoxicillin 875 MG (*)] 875 mg PO BID 01/05/18 [History Confirmed 01/05/18] Povidone Iodine SWABSTICK* [Betadine Swabsticks*] 1 applic TOPICAL DAILY [History Confirmed 01/05/18] PMH/Surg Hx/FS Hx/Imm Hx Endocrine/Hematology History: Denies: Hx Anticoagulant Therapy, Hx Blood Disorders, Hx Diabetes, Hx Thyroid Disease, Hx Anemia Cardiovascular History: Reports: Hx Hypercholesterolemia - takes statin Denies: Hx Aneurysm, Hx Deep Vein Thrombosis, Hx Embolism, Hx Hypertension, Hx Myocardial Infarction GI History: Reports: Hx Diverticulosis Denies: Hx Jaundice Musculoskeletal History: Reports: Hx Arthritis, Other Musculoskeletal History - Hx osteopenia Neurological History: Reports: Hx Developmental Delay, Hx Seizures - zonegran and topamax Psychiatric History: Reports: Hx Anxiety, Other Psychiatric Issues/Disorders - mood d/o - takes multiple meds - Surgical History Surgery Procedure, Year, and Place: bilat knee replacements Infectious Disease History: Denies: Hx Clostridium Difficile, Hx Hepatitis, Hx Human Immunodeficiency Virus (HIV), Hx of Known/Suspected MRSA, Hx Shingles, Hx Tuberculosis, Hx Known/ Suspected VRE, History Other Infectious Disease - Family History Known Family History: Positive: Unknown - Unknown pt has developmental delays Family History: patient living in [facility] unable provide family history - Social History Alcohol Use: None Substance Use Type: Reports: None Smoking Status (MU): Never Smoked Tobacco Review of Systems - ROS Summary Review of Systems Summary: ROS IS LIMITED DUE TO LEVEL 5 CAVEAT - pt with developmental delay Negative: Fever Positive: Chest Pain Positive: Headache, Weakness - generalized All Other Systems Reviewed And Are Negative: No Physical Exam - Summary Physical Exam Summary: GENERAL: Patient is a well developed and nourished female who is lying comfortable in the stretcher. Patient is not in any acute respiratory distress. HEAD AND FACE: Normocephalic EYES: PERRLA, EOMI x 2. EARS: Hearing grossly intact. MOUTH: Oropharynx within normal limits. NECK: Supple, trachea is midline, no adenopathy, no JVD, no carotid bruit. CHEST: Symmetric, no tenderness at palpation LUNGS: Clear to auscultation bilaterally. No wheezing or crackles. CVS: Regular rate and rhythm, S1 and S2 present, no murmurs or gallops appreciated. ABDOMEN: Soft, non-tender. Bowel sounds are normal. No abdominal abnormal pulsations. EXTREMITIES: Full ROM in all major joints, no edema, no cyanosis or clubbing. NEURO: Alert and oriented x 3. No acute neurological deficits. Speech is normal and follows commands. SKIN: Dry and warm NEURO: No focal deficits. Exam is limited as pt is not following commands due to developmental delay. Triage Information Reviewed: Yes Vital Signs On Initial Exam: Initial Vitals Temp Pulse Resp BP Pulse Ox 99.3 F 67 20 150/71 96 01/05/18 10:14 01/05/18 10:14 01/05/18 10:14 01/05/18 10:14 01/05/18 10:14 Vital Signs Reviewed: Yes Completion Of Physical Exam Limited Due To: Level 5 - pt with developmental delay Diagnostics - Vital Signs Vital Signs Temp Pulse Resp BP Pulse Ox 01/05/18 14:13 36.6 C 18 01/05/18 12:43 107/80 01/05/18 12:13 128/75 01/05/18 11:15 133/77 01/05/18 11:00 59 97 01/05/18 10:55 62 143/74 97 01/05/18 10:14 37.4 C 67 20 150/71 96 01/05/18 10:13 150/71 01/05/18 10:00 69 98 01/05/18 09:44 72 140/81 97 01/05/18 09:13 64 132/81 97 - Laboratory Lab Results: Lab Results 01/05/18 01/05/18 01/05/18 Range/Units 09:47 09:47 09:47 WBC 6.6 (3.5-10.8) 10^3/ul RBC 4.39 (4.00-5.40) 10^6/ul Hgb 13.9 (12.0-16.0) g/dl Hct 42 (35-47) % MCV 95 (80-97) fL MCH 32 H (27-31) pg MCHC 33 (31-36) g/dl RDW 13 (10.5-15) % Plt Count 200 (150-450) 10^3/ul MPV 7.5 (7.4-10.4) um3 Neut % (Auto) 64.8 (38-83) % Lymph % (Auto) 19.7 L (25-47) % [place] % (Auto) 10.9 H (0-7) % Eos % (Auto) 3.6 (0-6) % Baso % (Auto) 1.0 (0-2) % Absolute Neuts (auto) 4.3 (1.5-7.7) 10^3/ul Absolute Lymphs (auto) 1.3 (1.0-4.8) 10^3/ul Absolute Monos (auto) 0.7 (0-0.8) 10^3/ul Absolute Eos (auto) 0.2 (0-0.6) 10^3/ul Absolute Basos (auto) 0.1 (0-0.2) 10^3/ul Absolute Nucleated RBC 0 10^3/ul Nucleated RBC % 0 INR (Anticoag Therapy) 0.93 (0.77-1.02) APTT 42.2 H (26.0-36.3) seconds D-Dimer, Quantitative 479 H (Less Than 230) ng/mL Sodium 141 (135-145) mmol/L Potassium 3.9 (3.5-5.0) mmol/L Chloride 110 (101-111) mmol/L Carbon Dioxide 25 (22-32) mmol/L Anion Gap 6 (2-11) mmol/L BUN 17 (6-24) mg/dL Creatinine 0.84 (0.51-0.95) mg/dL Est GFR ( Amer) 85.7 (>60) Est GFR (Non-Af Amer) 66.6 (>60) BUN/Creatinine Ratio 20.2 H (8-20) Glucose 123 H (70-100) mg/dL Lactic Acid (0.5-2.0) mmol/L Calcium 9.1 (8.6-10.3) mg/dL Magnesium 2.0 (1.9-2.7) mg/dL Total Bilirubin 0.30 (0.2-1.0) mg/dL AST 21 (13-39) U/L ALT 17 (7-52) U/L Alkaline Phosphatase 80 (34-104) U/L Troponin I 0.00 (<0.04) ng/mL B-Natriuretic Peptide ( - 100) pg/mL Total Protein 7.0 (6.4-8.9) g/dL Albumin 4.1 (3.2-5.2) g/dL Globulin 2.9 (2-4) g/dL Albumin/Globulin Ratio 1.4 (1-3) TSH 1.72 (0.34-5.60) mcIU/mL Thyroxine (T4) 8.66 (6.09-12.23) mcg/mL Urine Color Urine Appearance Urine pH (5-9) Ur Specific [place] (1.010-1.030) Urine Protein (Negative) Urine Ketones (Negative) Urine Blood (Negative) Urine Nitrate (Negative) Urine Bilirubin (Negative) Urine Urobilinogen (Negative) Ur Leukocyte Esterase (Negative) Urine Glucose (Negative) 01/05/18 01/05/18 01/05/18 Range/Units 09:47 09:47 10:30 WBC (3.5-10.8) 10^3/ul RBC (4.00-5.40) 10^6/ul Hgb (12.0-16.0) g/dl Hct (35-47) % MCV (80-97) fL MCH (27-31) pg MCHC (31-36) g/dl RDW (10.5-15) % Plt Count (150-450) 10^3/ul MPV (7.4-10.4) um3 Neut % (Auto) (38-83) % Lymph % (Auto) (25-47) % [place] % (Auto) (0-7) % Eos % (Auto) (0-6) % Baso % (Auto) (0-2) % Absolute Neuts (auto) (1.5-7.7) 10^3/ul Absolute Lymphs (auto) (1.0-4.8) 10^3/ul Absolute Monos (auto) (0-0.8) 10^3/ul Absolute Eos (auto) (0-0.6) 10^3/ul Absolute Basos (auto) (0-0.2) 10^3/ul Absolute Nucleated RBC 10^3/ul Nucleated RBC % INR (Anticoag Therapy) (0.77-1.02) APTT (26.0-36.3) seconds D-Dimer, Quantitative (Less Than 230) ng/mL Sodium (135-145) mmol/L Potassium (3.5-5.0) mmol/L Chloride (101-111) mmol/L Carbon Dioxide (22-32) mmol/L Anion Gap (2-11) mmol/L BUN (6-24) mg/dL Creatinine (0.51-0.95) mg/dL Est GFR ( Amer) (>60) Est GFR (Non-Af Amer) (>60) BUN/Creatinine Ratio (8-20) Glucose (70-100) mg/dL Lactic Acid 1.0 (0.5-2.0) mmol/L Calcium (8.6-10.3) mg/dL Magnesium (1.9-2.7) mg/dL Total Bilirubin (0.2-1.0) mg/dL AST (13-39) U/L ALT (7-52) U/L Alkaline Phosphatase (34-104) U/L Troponin I (<0.04) ng/mL B-Natriuretic Peptide 64 ( - 100) pg/mL Total Protein (6.4-8.9) g/dL Albumin (3.2-5.2) g/dL Globulin (2-4) g/dL Albumin/Globulin Ratio (1-3) TSH (0.34-5.60) mcIU/mL Thyroxine (T4) (6.09-12.23) mcg/mL Urine Color Straw Urine Appearance Clear Urine pH 6.0 (5-9) Ur Specific [place] 1.004 L (1.010-1.030) Urine Protein Negative (Negative) Urine Ketones Negative (Negative) Urine Blood Negative (Negative) Urine Nitrate Negative (Negative) Urine Bilirubin Negative (Negative) Urine Urobilinogen Negative (Negative) Ur Leukocyte Esterase Negative (Negative) Urine Glucose Negative (Negative) 01/05/18 Range/Units 12:43 WBC (3.5-10.8) 10^3/ul RBC (4.00-5.40) 10^6/ul Hgb (12.0-16.0) g/dl Hct (35-47) % MCV (80-97) fL MCH (27-31) pg MCHC (31-36) g/dl RDW (10.5-15) % Plt Count (150-450) 10^3/ul MPV (7.4-10.4) um3 Neut % (Auto) (38-83) % Lymph % (Auto) (25-47) % [place] % (Auto) (0-7) % Eos % (Auto) (0-6) % Baso % (Auto) (0-2) % Absolute Neuts (auto) (1.5-7.7) 10^3/ul Absolute Lymphs (auto) (1.0-4.8) 10^3/ul Absolute Monos (auto) (0-0.8) 10^3/ul Absolute Eos (auto) (0-0.6) 10^3/ul Absolute Basos (auto) (0-0.2) 10^3/ul Absolute Nucleated RBC 10^3/ul Nucleated RBC % INR (Anticoag Therapy) (0.77-1.02) APTT (26.0-36.3) seconds D-Dimer, Quantitative (Less Than 230) ng/mL Sodium (135-145) mmol/L Potassium (3.5-5.0) mmol/L Chloride (101-111) mmol/L Carbon Dioxide (22-32) mmol/L Anion Gap (2-11) mmol/L BUN (6-24) mg/dL Creatinine (0.51-0.95) mg/dL Est GFR ( Amer) (>60) Est GFR (Non-Af Amer) (>60) BUN/Creatinine Ratio (8-20) Glucose (70-100) mg/dL Lactic Acid (0.5-2.0) mmol/L Calcium (8.6-10.3) mg/dL Magnesium (1.9-2.7) mg/dL Total Bilirubin (0.2-1.0) mg/dL AST (13-39) U/L ALT (7-52) U/L Alkaline Phosphatase (34-104) U/L Troponin I 0.00 (<0.04) ng/mL B-Natriuretic Peptide ( - 100) pg/mL Total Protein (6.4-8.9) g/dL Albumin (3.2-5.2) g/dL Globulin (2-4) g/dL Albumin/Globulin Ratio (1-3) TSH (0.34-5.60) mcIU/mL Thyroxine (T4) (6.09-12.23) mcg/mL Urine Color Urine Appearance Urine pH (5-9) Ur Specific [place] (1.010-1.030) Urine Protein (Negative) Urine Ketones (Negative) Urine Blood (Negative) Urine Nitrate (Negative) Urine Bilirubin (Negative) Urine Urobilinogen (Negative) Ur Leukocyte Esterase (Negative) Urine Glucose (Negative) Result Diagrams: 01/05/18 09:47 01/05/18 09:47 Lab Statement: Any lab studies that have been ordered have been reviewed, and results considered in the medical decision making process. - Radiology Chest XR Xray Interpretation: Positive (See Comments) - IMPRESSION: Low lung volumes with subsegmental atelectasis. Dr. Nick has reviewed this radiology report. Radiology Interpretation Completed By: Radiologist - CT Brain CT CT Interpretation: No Acute Changes - IMPRESSION: No acute intracranial findings. Dr. Nick has reviewed this radiology report. CT Interpretation Completed By: Radiologist Chest CTA CT Interpretation: No Acute Changes - IMPRESSION: 1. Moderately limited CT pulmonary angiogram due to motio artifact without compelling evidence for pulmonary embolism. 2. Mild alveolar consolidation at the lingula and bilateral dependent lower lung zones is most suspicious for subsegemental atelecatsis. Dr. Nick has reviewed this radiology report. CT Interpretation Completed By: Radiologist - EKG 09:22 Cardiac Rate: NL - at 65 bpm EKG Rhythm: Sinus Rhythm EKG Interpretation: No ischemic changes. Re-Evaluation - Re-Evaluation First Eval Re-Evaluation Time: 11:13 Change: Improved Comment: Pt reports her headache and chest pain are better, but because the D- dimer is elevated we are getting a CT angiogram. Second Eval Re-Evaluation Time: 12:19 Comment: CT angiogram is negative for PE. Second troponin will be repeated at this time. Third Eval Re-Evaluation Time: 13:12 Comment: Second troponin is negative. Pt will be discharged home. Complex Multi-Symp Course/Dx Course Of Treatment: 72-year-old female who was sent in a intermediate for an evaluation of seizure-like activity. Patient also reports right-sided chest pain. Workup is remarkable for mildly elevated d-dimer etc. CT scan of the chest was done which shows no PE. 2 sets of troponins were done and were negative. Patient reports feeling better and wants to go home. Patient hemodynamically stable and is safe for discharge, strict return precautions and otherwise follow up with her PCP and public address technician. - Diagnoses Provider Diagnoses: History of seizures, Right-sided chest pain Discharge - Sign-Out/Discharge Documenting (check all that apply): Discharge/Admit/Transfer - Discharge - Discharge Plan Condition: Stable Disposition: HOME Patient Education Materials: Chest Pain (ED), Recurrent Seizures in Adults (ED) Referrals: Selma Ley MD [Primary Care Provider] - Additional Instructions: Please follow up with your primary care provider. RETURN TO THE ED FOR ANY NEW OR WORSENING SYMPTOMS. - Billing Disposition and Condition Condition: STABLE Disposition: Home The documentation as recorded by the scribe, Mott,Maria Victoria accurately reflects the service I personally performed and the decisions made by me, Luther Nick MD.
== END 2018-01-05 14:13 | disposition home or self-care (01) ==
LOC: ED 09:08
DX: R07.9 Chest pain, unspecified (principal); G40.909 Epilepsy, unspecified, not intractable, without status epilepticus; J98.11 Atelectasis; F89 Unspecified disorder of psychological development; E78.00 Pure hypercholesterolemia, unspecified; Z79.899 Other long term (current) drug therapy; Z88.5 Allergy status to narcotic agent; Z88.8 Allergy status to other drugs, medicaments and biological substances
CPT/HCPCS: 36415; 70450; 71045; 71275; 80053; 81003; 83605; 83735; 83880; 84436; 84443; 84484; 85025; 85379; 85610; 85730; 87040; 93005; 99284; A9270-GY; Q9967

== ENCOUNTER 2018-02-27 09:28 | Emergency (ER) | payer MEDICARE, MEDICAID ==
[2018-02-27 09:37] VITALS: BP 132/66
--- NOTE | 2018-02-27 10:19 | UC ---
Upper Extremity HPI - HPI Summary HPI Summary: Patient accompanied by REAL ESTATE FINANCIAL ANALYST, she lives in an extended halfway, she states patient's walker was caught in the carpet and patient fell sitting down hitting her right elbow on the ground. Patient denies any pain at the moment. Denies any pain anywhere else in her body. Patient has history of developmental delay and replies 'no' to all of the questions regarding pain - History of Current Complaint Chief Complaint: UCUpperExtremity Stated Complaint: FALL Time Seen by Provider: 02/27/18 10:00 Hx Obtained From: Patient, Family/Human Resources Operations Coordinator ?: No Onset/Duration: Sudden Onset, Lasting Hours Severity Initially: Mild Severity Currently: Moderate Pain Intensity: 5 Character: Unable to Describe Aggravating Factor(s): Nothing Alleviating Factor(s): Nothing Associated Signs And Symptoms: Positive: Negative - Risk Factors Non-Orthopedic Risk Factor: Negative DVT Risk Factors: Negative Septic Arthritis Risk Factor: Negative Compartment Syndrome Risk Factors: Pain - Allergies/Home Medications Allergies/Adverse Reactions: Allergies Allergy/AdvReac Type Severity Reaction Status Date / Time Morpholine Analogues Allergy Intermediate Rash Verified 02/27/18 09:37 Opioids - Morphine Analogues Allergy Intermediate Rash Verified 02/27/18 09:37 carbamazepine [From Tegretol] Allergy Vomiting Verified 02/27/18 09:37 codeine Allergy Rash Verified 02/27/18 09:37 PMH/Surg Hx/FS Hx/Imm Hx - Additional Past Medical History Additional PMH: osteoporosis Previously Healthy: Yes Endocrine History: Dyslipidemia Neurological History: Seizures Other History Of: Negative For: Anticoagulant Therapy - Surgical History Surgical History: Yes Surgery Procedure, Year, and Place: bilat knee replacements - Family History Known Family History: Positive: Unknown - Unknown pt has developmental delays Family History: patient living in [facility] unable provide family history - Social History Alcohol Use: None Substance Use Type: None Smoking Status (MU): Never Smoked Tobacco Review of Systems Constitutional: Negative Musculoskeletal: Arthralgia All Other Systems Reviewed And Are Negative: Yes Physical Exam Triage Information Reviewed: Yes Appearance: Well-Appearing, No Pain Distress, Obese Vital Signs: Initial Vital Signs Temp 97.8 F 02/27/18 09:33 Pulse 63 02/27/18 09:33 Resp 18 02/27/18 09:33 BP 132/66 02/27/18 09:33 Pulse Ox 98 02/27/18 09:33 Vital Signs Reviewed: Yes Eyes: Positive: Conjunctiva Clear ENT: Positive: Hearing grossly normal Neck exam: Normal Respiratory: Positive: Lungs clear Cardiovascular: Positive: RRR, No Murmur, Pulses Normal, Brisk Capillary Refill Abdomen Description: Positive: Nontender Bowel Sounds: Positive: Present Musculoskeletal Exam: Normal Musculoskeletal: Positive: Strength Intact, ROM Intact, No Edema, Other: - right elbow : FROM, no skin changes, no soft tissue swelling, non tender upon palpation Upper Extremity Course/Dx - Course Course Of Treatment: xray of elbow was negative for acute fracture. Patient with developmental dissability, no signs of tenderness upon exam, she denies having pain at the time. Fall precautions given. - Differential Dx/Diagnosis Provider Diagnoses: Contussion right elbow Discharge - Sign-Out/Discharge Documenting (check all that apply): Patient Departure - Discharge Plan Condition: Good Disposition: HOME Patient Education Materials: Elbow Sprain (ED), Fall Prevention for Older Adults (ED) Referrals: Selma Ley MD [Primary Care Provider] - - Billing Disposition and Condition Condition: GOOD Disposition: Home
--- NOTE | 2018-02-27 11:02 | RAD ---
INDICATION: Right elbow injury. TECHNIQUE: 2 views of the right elbow were obtained. FINDINGS: There is deformity of the distal humerus and proximal radius most consistent with old fractures. There is severe arthritic change present limiting the study. No joint effusion or acute fracture is seen. IMPRESSION: SEVERE ARTHRITIC CHANGE AND FINDINGS MOST CONSISTENT WITH OLD FRACTURES. NO ACUTE FRACTURE IS SEEN. IF THE PATIENT'S SYMPTOMS PERSIST RECOMMEND FOLLOW-UP IMAGING.
== END 2018-02-27 11:30 | disposition home or self-care (01) ==
LOC: UCEAST 09:28
DX: S50.01XA Contusion of right elbow, initial encounter (principal); W01.0XXA Fall on same level from slipping, tripping and stumbling without subsequent striking against object, initial encounter; Y93.89 Activity, other specified; Y92.099 Unspecified place in other non-institutional residence as the place of occurrence of the external cause; Z88.5 Allergy status to narcotic agent; Z96.653 Presence of artificial knee joint, bilateral
CPT/HCPCS: 99212; G0463

== ENCOUNTER 2018-03-20 13:34 | Emergency (ER) | payer MEDICARE, MEDICAID ==
[2018-03-20 13:47] VITALS: BP 146/66
--- NOTE | 2018-03-20 14:09 | UC ---
Skin Complaint HPI - HPI Summary HPI Summary: pt slipped in kitchen this am and injured bilateral forearms - History of Current Complaint Chief Complaint: UCUpperExtremity Time Seen by Provider: 03/20/18 13:58 Stated Complaint: FELL ARM LAC Hx Obtained From: Family/Canvas Marker Hx From Patient Unobtainable Due To: Other - MR Onset/Duration: Sudden Onset Onset Severity: Moderate Current Severity: Moderate Pain Intensity: 6 Aggravating Factor(s): Touch Alleviating Factor(s): Cold Associated Signs & Symptoms: Positive: Bruising - Allergy/Home Medications Allergies/Adverse Reactions: Allergies Allergy/AdvReac Type Severity Reaction Status Date / Time Morpholine Analogues Allergy Intermediate Rash Verified 03/20/18 13:48 Opioids - Morphine Analogues Allergy Intermediate Rash Verified 03/20/18 13:48 carbamazepine [From Tegretol] Allergy Vomiting Verified 03/20/18 13:48 codeine Allergy Rash Verified 03/20/18 13:48 Review of Systems Constitutional: Negative Skin: Bruising, Other - forearm abrasions Respiratory: Negative Cardiovascular: Negative Musculoskeletal: Negative All Other Systems Reviewed And Are Negative: Yes PMH/Surg Hx/FS Hx/Imm Hx Previously Healthy: Yes Neurological History: Seizures, Other - MR Other Neurological History: MR, seizures Other History Of: Negative For: Anticoagulant Therapy - Surgical History Surgical History: Yes Surgery Procedure, Year, and Place: Bilateral knee replacements - Family History Known Family History: Positive: Unknown - Unknown pt has developmental delays Family History: patient living in correction unable provide family history - Social History Occupation: Disabled Lives: Assisted Living Alcohol Use: None Substance Use Type: None Smoking Status (MU): Never Smoked Tobacco Physical Exam Triage Information Reviewed: Yes Appearance: Well-Appearing, No Pain Distress, Well-Nourished Vital Signs: Initial Vital Signs Temp 98.7 F 03/20/18 13:43 Pulse 69 03/20/18 13:43 Resp 18 03/20/18 13:43 BP 146/66 03/20/18 13:43 Pulse Ox 99 03/20/18 13:43 Vital Signs Reviewed: Yes Neck exam: Normal Respiratory Exam: Normal Cardiovascular Exam: Normal Musculoskeletal Exam: Normal Musculoskeletal: Positive: Strength Intact, ROM Intact, Other: - no deformity, no tenderness along long gones of UE Neurological Exam: Normal - for patient Psychological Exam: Normal Skin: Positive: Other - superficial abrasions bilateral forearms Course/Dx - Differential Diagnoses - Skin Complaint Differential Diagnoses: Other - abrasions, contusions, fractures - Diagnoses Provider Diagnoses: contusions and abrasions bilateral forearms Discharge - Sign-Out/Discharge Documenting (check all that apply): Patient Departure All imaging exams completed and their final reports reviewed: No Studies - Discharge Plan Condition: Good Disposition: HOME Patient Education Materials: Abrasion (ED), Contusion in Adults (ED) Referrals: Selma Ley MD [Primary Care Provider] - 2 Days (recheck wounds if needed ) Additional Instructions: apply ice to forearm injuries keep wounds clean and dry and report signs of infection - Billing Disposition and Condition Condition: GOOD Disposition: Home
== END 2018-03-20 14:23 | disposition home or self-care (01) ==
LOC: UCEAST 13:34
DX: S50.12XA Contusion of left forearm, initial encounter (principal); S50.11XA Contusion of right forearm, initial encounter; S50.812A Abrasion of left forearm, initial encounter; S50.811A Abrasion of right forearm, initial encounter; W01.0XXA Fall on same level from slipping, tripping and stumbling without subsequent striking against object, initial encounter; Y93.9 Activity, unspecified; Y92.000 Kitchen of unspecified non-institutional (private) residence as the place of occurrence of the external cause; Z96.653 Presence of artificial knee joint, bilateral; Z88.5 Allergy status to narcotic agent; Z88.8 Allergy status to other drugs, medicaments and biological substances
CPT/HCPCS: 99212; G0463